=== PATIENT | female | born 1990 | race Caucasian/White ===

== ENCOUNTER 2018-10-25 21:05 | Outpatient (CLI) | payer SELFPAY ==
[~2018-10-25] VITALS: Ht 147.3 cm; Wt 45.6 kg
--- NOTE | 2018-10-25 21:23 | NUR ---
ALEXANDER FRAIRE presented to unit via ambulatory from ED, accompanied by family, with c/o STOMACH PAIN, BLEEDING. ALEXANDER FRAIRE weighed, gowned, voided, and to bed. EFKAYCE and CARIN applied, VS taken. ALEXANDER FRAIRE oriented to bed controls, call light, TV, heat, and A/C controls.
[2018-10-25 21:35] VITALS: BP 108/67
[2018-10-25 21:59] LABS: BILIRUBIN,URINE NEGATIVE (NEGATIVE); CLARITY,URINE CLEAR; COLOR,URINE YELLOW; GLUCOSE, URINE (UA) NEGATIVE (NEGATIVE); KETONES,URINE NEGATIVE (NEGATIVE); LEUKOCYTE ESTERASE ,URINE 1+ (NEGATIVE); NITRITE,URINE NEGATIVE (NEGATIVE); PH,URINE 8 (5-9); PROTEIN,URINE NEGATIVE (NEGATIVE); UROBILINOGEN,URINE NORMAL (NORMAL)
[2018-10-25 22:08] LABS: BACTERIA,URINE NEGATIVE /HPF; SQUAMOUS EPITHELIAL CELL,UR RARE /HPF; WBC,URINE 0-2 /HPF
[2018-10-25 22:09] LABS: AMORPHOUS SEDIMENT,UR MOD AMOR PHOSPHATE /LPF
--- NOTE | 2018-10-25 22:11 | NUR ---
This Rn called Dr Mera to notify of patient arrival and c/o lower abd pain and bleeding that last occurred around 1430 this afternoon, vs, fhr of 158 per doppler, and contraction pattern, notified of last sono of approx 2 months ago per patient, UA results, and gest age of 20wks. New orders received, Dr to review ultrasound report from when patient states.
[2018-10-25] MEDS ORDERED: ACETAMINOPHEN 500 MG TAB (TYLENOL) ONE (22:13)
--- NOTE | 2018-10-25 22:18 | NUR ---
Dr Mera called back to nurses station regarding patient ultrasound. New orders for sve received.
[2018-10-25] MEDS ORDERED: ACETAMINOPHEN 500 MG TAB (TYLENOL) PO ONE (22:30)
--- NOTE | 2018-10-25 23:28 | NUR ---
Patient no longer feels any pain. Dr Mera called per this RN, notified of 0/10 pain rating, uterine irritability and patient overall feeling better. OK for discharge home order received.
[2018-10-25] MEDS ORDERED: PREN-53 PO (23:29)
--- NOTE | 2018-10-25 23:29 | NUR ---
Uterine irritiability present on TOCO monitor with 2-3 contractions present lasting 40-70secs since patient arrived. FHR dopplered at 158bpm, patient abd non tender upon palpation since arrival. Patient states she feels tylenol has alleviated pain.
--- NOTE | 2018-10-25 23:40 | NUR ---
Discharge instructions reviewed and handouts provided to patient. Patient and family verbalize understanding. Patient and family ambulating off of unit at this time.
--- NOTE | 2018-10-29 09:38 | Physician Query-Final Dx ---
BINDU GUERRERO 10/29/18 0938: Clinic Account Progress/Dx Physician Query: Please give diagnosis Need dx and weeks of gestation. Date of Service Oct 25, 2018 at 21:05 ALIZE ARRIAGA DO 11/05/18 0654: Clinic Account Progress/Dx DIAGNOSIS: Diagnosis 20 week GA abdominal pain BINDU GUERRERO Oct 29, 2018 09:38 ALIZE ARRIAGA DO Nov 05, 2018 06:54
== END 2018-10-25 23:40 | disposition home or self-care (01) ==
LOC: WSo 21:05 → LDRP 21:10 → WSo 23:40
PROVIDERS: ATTEND Family Medicine
DX: O99.89 Other specified diseases and conditions complicating pregnancy, childbirth and the puerperium (principal); R10.32 Left lower quadrant pain; Z3A.20 20 weeks gestation of pregnancy
CPT/HCPCS: 81000; 99213

== ENCOUNTER 2019-01-24 07:40 | Emergency (ER) | payer SELFPAY | END 2019-01-24 10:23 | disposition home or self-care (01) | LOC: ER 07:40 ==

== ENCOUNTER 2019-02-16 03:58 | Outpatient (CLI) | payer OTHER ==
[2019-02-16] VITALS (14 sets, daily range): BP systolic 100–132; BP diastolic 56–92
[~2019-02-16] VITALS: Ht 149.9 cm; Wt 53.4 kg
[~2019-02-16 03:58] MED LIST: PREN-53 PO
--- NOTE | 2019-02-16 04:10 | NUR ---
GURMEET ADAMSON presented to unit via ambulation from ED, accompanied by so, with c/o CONTRACTIONS. GURMEET ADAMSON weighed, gowned, voided, and to bed. EFHM and TOCO applied, VS taken. GURMEET ADAMSON oriented to bed controls, call light, TV, heat, and A/C controls.
[2019-02-16 04:41] LABS: BILIRUBIN,URINE NEGATIVE (NEGATIVE); CLARITY,URINE CLEAR; COLOR,URINE YELLOW; GLUCOSE, URINE (UA) NEGATIVE (NEGATIVE); KETONES,URINE NEGATIVE (NEGATIVE); LEUKOCYTE ESTERASE ,URINE 1+ (NEGATIVE); NITRITE,URINE NEGATIVE (NEGATIVE); PH,URINE 6.5 (5-9); PROTEIN,URINE NEGATIVE (NEGATIVE); UROBILINOGEN,URINE NORMAL (NORMAL)
[2019-02-16 05:03] LABS: BACTERIA,URINE FEW /HPF
[2019-02-16] MEDS ORDERED: PHYTONADIONE (VIT. K) NEONATAL 1 MG/0.5 ML AMP ONE (08:40)
[2019-02-16] MEDS ORDERED: ERYTHROMYCIN OPHTH OINT 1 GM (SINGLE USE) TUBE ONE (08:40)
[2019-02-16] MEDS ORDERED: LACTATED RINGERS 1,000 ML IV SCH ×2 (09:15→13:30)
[2019-02-16] MEDS ORDERED: cefTRIAXone 500 MG/1.43 ML vial (IM ONLY) IM ONE (13:30)
[2019-02-16] MEDS ORDERED: LIDOCAINE 1% INJ 20 ML 20 ML VIAL INJ ONE (13:30)
[2019-02-16] MEDS ORDERED: hydrOXYzine (VISTARIL/ATARAX) 25 MG capsule/tablet PO ONE (13:30)
--- NOTE | 2019-02-16 14:51 | NUR ---
DR NEIL CALLED NEW ORDERS RECEIVED.
== END 2019-02-16 15:25 | disposition home or self-care (01) ==
LOC: WSo 03:58 → LDRP 03:59 → WSo 15:25
PROVIDERS: ATTEND Family Medicine
DX: O62.8 Other abnormalities of forces of labor (principal); Z3A.38 38 weeks gestation of pregnancy
CPT/HCPCS: 81000; 87088; 96360; 96361; 96372; 99213

== ENCOUNTER 2022-04-04 18:42 | Observation (INO) | payer SELFPAY ==
[~2022-04-04] VITALS: Ht 152 cm; Wt 51.0 kg
[~2022-04-04 18:42] MED LIST changes: +IBUP-844 PO
[2022-04-04 19:38] LABS: BILIRUBIN,URINE NEGATIVE (NEGATIVE); CLARITY,URINE CLEAR; COLOR,URINE YELLOW; GLUCOSE, URINE (UA) NEGATIVE (NEGATIVE); KETONES,URINE NEGATIVE (NEGATIVE); LEUKOCYTE ESTERASE ,URINE 1+ (NEGATIVE); NITRITE,URINE NEGATIVE (NEGATIVE); PROTEIN,URINE NEGATIVE (NEGATIVE)
--- NOTE | 2022-04-04 19:48 | ED Abdominal Pain ---
General Chief Complaint: OB < 20 WEEKS Stated Complaint: 5 WKS ,OVARIAN PAIN,SENT BY [facility] Nursing Triage Note: PT TO TRIAGE EQUIPMENT DRIVER USED. CLINIC STATES IS NOT WHERE IT SHOULD BE. RATES PAIN 02/12 HAS BLOOD IN URINE Source of Information: Patient Exam Limitations: No Limitations History of Present Illness Date Seen by Provider: Apr 04, 2022 Time Seen by Provider: 19:46 Initial Comments To ER by private vehicle from [facility] with reports of left-sided lower abdominal pain for 3 days. She only has her left ovary, the right was removed at the age of 12 due to ovarian cysts. She is about 5 weeks gestation, last menstrual period last month. . She has had vaginal bleeding. Macedonian-speaking only, brim stiffener used for communication Timing/Duration: 2-3 Days Severity/Quality: Moderate, Severe Location: LLQ Radiation: No Radiation Activities at Onset: None Allergies and Home Medications Allergies Coded Allergies: No Known Drug Allergies (Unverified , 10/25/18) Patient Home Medication List Home Medication List Reviewed: Yes Ibuprofen (Ibu) 600 Mg Tablet, 600 MG PO Q6HR Prescribed by: JOHN NEIL on 02/20/19 1205 Review of Systems Review of Systems Constitutional: see HPI EENTM: No Symptoms Reported Respiratory: No Symptoms Reported Cardiovascular: No Symptoms Reported Gastrointestinal: See HPI, Abdominal Pain Genitourinary: No Symptoms Reported Musculoskeletal: no symptoms reported Skin: no symptoms reported Psychiatric/Neurological: No Symptoms Reported Endocrine: No Symptoms Reported Hematologic/Lymphatic: No Symptoms Reported Past Dgrisjc-Bppdtp-Clmimq Hx Patient Social History Tobacco Use?: No Substance use?: No Alcohol Use?: No Pt feels they are or have been: No Immunizations Up To Date Tetanus Booster (TDap): Less than 5yrs PED Vaccines UTD: Yes Seasonal Allergies Seasonal Allergies: No Past Medical History Surgeries: Yes (R OOPHORECTOMY) Appendectomy, Oophorectomy Respiratory: No Cardiac: No Neurological: No Last Menstrual Period: Jan 18, 2022 HIV/AIDS: No Genitourinary: No Gastrointestinal: No Musculoskeletal: No Endocrine: No HEENT: No Cancer: No Psychosocial: No Integumentary: No Blood Disorders: No Family Medical History Patient reports no known family medical history. Physical Exam Vital Signs Vital Signs - First Documented 04/04/22 18:50 Temp 36.7 Pulse 82 Resp 18 B/P (MAP) 118/80 (93) Pulse Ox 100 Capillary Refill : Less Than 3 Seconds Height/Weight/BMI Height: 4'10.00" Weight: 100lbs. 10.0oz. 45.283486vd; 22.00 BMI Method: General Appearance: WD/WN, no apparent distress HEENT: PERRL/EOMI, normal ENT inspection Respiratory: no respiratory distress, no accessory muscle use Gastrointestinal: normal bowel sounds, soft, tenderness Extremities: normal range of motion, non-tender Neurologic/Psychiatric: alert, normal mood/affect, oriented x 3 Skin: normal color, warm/dry Progress/Results/Core Measures Results/Orders Lab Results Laboratory Tests Test 04/04/22 19:29 04/04/22 19:49 Range/Units Urine Color YELLOW Urine Clarity CLEAR Urine pH 6.0 5-9 Urine Specific [place] <=1.005 1.016-1.022 Urine Protein NEGATIVE NEGATIVE Urine Glucose (UA) NEGATIVE NEGATIVE Urine Ketones NEGATIVE NEGATIVE Urine Nitrite NEGATIVE NEGATIVE Urine Bilirubin NEGATIVE NEGATIVE Urine Urobilinogen 0.2 < = 1.0 MG/DL Urine Leukocyte Esterase 1+ H NEGATIVE Urine RBC (Auto) NEGATIVE NEGATIVE Urine RBC NONE /HPF Urine WBC NONE /HPF Urine Squamous Epithelial Cells NONE /HPF Urine Renal Epithelial Cells NONE /HPF Urine Crystals NONE /LPF Urine Bacteria NEGATIVE /HPF Urine Casts NONE /LPF Urine Mucus NEGATIVE /LPF Urine Culture Indicated NO White Blood Count 13.6 H 4.3-11.0 10^3/uL Red Blood Count 4.54 3.80-5.11 10^6/uL Hemoglobin 13.9 11.5-16.0 g/dL Hematocrit 40 35-52 % Mean Corpuscular Volume 89 80-99 fL Mean Corpuscular Hemoglobin 31 25-34 pg Mean Corpuscular Hemoglobin Concent 35 32-36 g/dL Red Cell Distribution Width 12.3 10.0-14.5 % Platelet Count 287 130-400 10^3/uL Mean Platelet Volume 9.5 9.0-12.2 fL Immature Granulocyte % (Auto) 0 % Neutrophils (%) (Auto) 73 42-75 % Lymphocytes (%) (Auto) 21 12-44 % Monocytes (%) (Auto) 4 0-12 % Eosinophils (%) (Auto) 1 0-10 % Basophils (%) (Auto) 0 0-10 % Neutrophils # (Auto) 10.0 H 1.8-7.8 10^3/uL Lymphocytes # (Auto) 2.9 1.0-4.0 10^3/uL Monocytes # (Auto) 0.6 0.0-1.0 10^3/uL Eosinophils # (Auto) 0.1 0.0-0.3 10^3/uL Basophils # (Auto) 0.0 0.0-0.1 10^3/uL Immature Granulocyte # (Auto) 0.1 0.0-0.1 10^3/uL Sodium Level 135 135-145 MMOL/L Potassium Level 3.6 3.6-5.0 MMOL/L Chloride Level 104 98-107 MMOL/L Carbon Dioxide Level 20 L 21-32 MMOL/L Anion Gap 11 5-14 MMOL/L Blood Urea Nitrogen 11 7-18 MG/DL Creatinine 0.71 0.60-1.30 MG/DL Estimat Glomerular Filtration Rate 116 BUN/Creatinine Ratio 15 Glucose Level 95 70-105 MG/DL Calcium Level 9.4 8.5-10.1 MG/DL Corrected Calcium 8.5-10.1 MG/DL Total Bilirubin 0.5 0.1-1.0 MG/DL Aspartate Amino Transf (AST/SGOT) 27 5-34 U/L Alanine Aminotransferase (ALT/SGPT) 89 H 0-55 U/L Alkaline Phosphatase 68 40-136 U/L Total Protein 7.9 6.4-8.2 GM/DL Albumin 4.6 H 3.2-4.5 GM/DL Human Chorionic Gonadotropin, Quant 2799 H <5 MIU/ML My Orders Orders - CHARY BUCKLEY APRN Hcg,Quantitative (04/04/22 19:31) Cbc With Automated Diff (04/04/22 19:31) Comprehensive Metabolic Panel (04/04/22 19:31) Ua Culture If Indicated (04/04/22 19:31) Ed Iv/Invasive Line Start (04/04/22 19:31) Fentanyl Inj (Sublimaze Injection) (04/04/22 20:00) Us Ob<14 Wks Sngle W/Transvag (04/04/22 20:28) Medications Given in ED Current Medications Medications Dose Ordered Sig/Gerson Route Start Time Stop Time Status Last Admin Dose Admin Fentanyl Citrate 50 mcg ONCE ONCE IVP 04/04/22 20:00 04/04/22 20:01 DC 04/04/22 20:04 50 MCG Vital Signs/I&O 04/04/22 18:50 Temp 36.7 Pulse 82 Resp 18 B/P (MAP) 118/80 (93) Pulse Ox 100 Blood Pressure Mean: 93 Departure Communication (Admissions) 3102-spoke with Dr. Rawls, will admit overnight pain control n.p.o. status and tentative plan for surgery in the morning. I relayed this plan to the patient and she understands. lead technologist in cytogenetics reports a gestational sac within the left ovary, no pole. This measures about 6 weeks consistent with her reported gestational age. Currently she rates her pain at 5 out of 1:10 dose of fentanyl. Impression Primary Impression: Ectopic of left ovary Disposition: ADMITTED INPATIENT Condition: Stable Admissions Decision to Admit Reason: Admit from ER (General) Decision to Admit/Date: Apr 04, 2022 Time/Decision to Admit Time: 22:58 Departure-Patient Inst. Referrals: JOHN NEIL MD (PCP/Family) Primary Care Physician CHARY BUCKLEY APRN Apr 04, 2022 19:48
[2022-04-04 19:51] LABS: BACTERIA,URINE NEGATIVE /HPF
[2022-04-04 19:56] LABS: BASOPHILS % (AUTO) 0 % (0-10); EOSINOPHILS # (AUTO) 0.1 10^3/uL (0.0-0.3); EOSINOPHILS % (AUTO) 1 % (0-10); HEMATOCRIT 40 % (35-52); HEMOGLOBIN 13.9 g/dL (11.5-16.0); LYMPHOCYTES # (AUTO) 2.9 10^3/uL (1.0-4.0); LYMPHOCYTES % (AUTO) 21 % (12-44); MEAN CORPUSCULAR HEMOGLOBIN 31 pg (25-34); MEAN CORPUSCULAR HGB CONC 35 g/dL (32-36); MEAN CORPUSCULAR VOLUME 89 fL (80-99); MEAN PLATELET VOLUME 9.5 fL (9.0-12.2); MONOCYTES # (AUTO) 0.6 10^3/uL (0.0-1.0); MONOCYTES % (AUTO) 4 % (0-12); NEUTROPHILS % (AUTO) 73 % (42-75); PLATELET COUNT 287 10^3/uL (130-400); WHITE BLOOD COUNT 13.6 10^3/uL (4.3-11.0)
[2022-04-04] MEDS ORDERED: fentaNYL INJ 100 MCG/2 ML AMP IVP ONE ×2 (20:00→23:15)
[2022-04-04 20:19] LABS: ALANINE AMINOTRANSFERASE 89 U/L (0-55); ALBUMIN 4.6 GM/DL (3.2-4.5); ALKALINE PHOSPHATASE 68 U/L (40-136); BILIRUBIN,TOTAL 0.5 MG/DL (0.1-1.0); BUN/CREATININE RATIO 15; CALCIUM 9.4 MG/DL (8.5-10.1); CARBON DIOXIDE 20 MMOL/L (21-32); CHLORIDE 104 MMOL/L (98-107); CREATININE SERUM 0.71 MG/DL (0.60-1.30); GFR ESTIMATED 116; GLUCOSE 95 MG/DL (70-105); POTASSIUM 3.6 MMOL/L (3.6-5.0); SODIUM 135 MMOL/L (135-145); TOTAL PROTEIN 7.9 GM/DL (6.4-8.2)
[2022-04-05] MEDS ORDERED: LACTATED RINGERS 1,000 ML IV ONE (00:55)
[2022-04-05] MEDS ORDERED: ONDANSETRON 4 MG/2 ML (SDV) Z0FRAN ONE (00:55)
[2022-04-05 01:00] VITALS: BP 116/73
[2022-04-05] MEDS ORDERED: ONDANSETRON 4 MG/2 ML (SDV) Z0FRAN IVP PRN (01:00)
[2022-04-05] MEDS ORDERED: fentaNYL INJ 100 MCG/2 ML AMP IVP PRN (01:00)
[2022-04-05] MEDS ORDERED: LACTATED RINGERS 1,000 ML IV SCH (01:00)
[2022-04-05 05:22] VITALS: BP 105/59
--- NOTE | 2022-04-05 06:54 | Diagnostic Imaging Report ---
Indication: Left lower quadrant pain Transabdominal and endovaginal OB ultrasound Uterus measures 7.8 x 5.0 x 7.7 cm. There is a 2.5 mm fluid collection within the endometrial cavity at the uterine fundus. This is too small to be determined to be an intrauterine gestational sac.. Page 101 of 152 mmHg does suggest a double decidual line. Right ovary cannot be located sonographically because of overlying bowel gas. Left ovary appears to be hyperemic. There is a trace amount of free fluid. IMPRESSION: Questionable early intrauterine gestational sac. Ectopic left adnexal cannot completely be excluded. Recommend short term interval follow-up and correlation with hCG levels. I agree with preliminary interpretation. Dictated by: Dictated on workstation # [id number] [id number]
--- NOTE | 2022-04-05 08:16 | History & Physical-OB/GYN ---
History of Present Illness History of Present Illness Reason for visit/HPI Lower abdominal pain, adnexal cystic structure and positive test. Patient admitted from ER with possible ectopic vs early viable . She reports a 3 day history of lower abdominal pelvic pain that brought her to emergency room last night. She received a dose of fentynl in the ER, but has required no further pain medications overnight. This morning she reports being sore and having pain on the left side of the pelvis, but no vaginal bleeding. Date of Admission Apr 04, 2022 at 23:02 Date Seen by a Provider: Apr 05, 2022 Time Seen by a Provider: 07:45 I consulted on this patient on 04/05/22 08:12 Attending Physician John Neil MD Admitting Physician Admitting Physician: Capo Rawls DO Attending Physician: Capo Rawls DO Consult Allergies and Home Medications Allergies Coded Allergies: No Known Drug Allergies (Unverified , 10/25/18) Patient Home Medication List Home Medication List Reviewed: Yes Ibuprofen (Ibu) 600 Mg Tablet, 600 MG PO Q6HR Prescribed by: JOHN NEIL on 02/20/19 1205 Past Ahdlegz-Lvopvj-Loyprs Hx Patient Social History Recent Hopitalizations: No Have you traveled recently?: No Alcohol Use?: No Pt feels they are or have been: No Immunizations Up To Date Tetanus Booster (TDap): Less than 5yrs Pediatric: Yes Date of Influenza Vaccine: Jan 27, 2019 Seasonal Allergies Seasonal Allergies: No Surgeries Yes (R OOPHORECTOMY) Appendectomy, Oophorectomy Respiratory No Cardiovascular No Neurological No Reproductive System Last Menstrual Period: Jan 18, 2022 HIV/AIDS: No Genitourinary No Gastrointestinal No Musculoskeletal No Endocrine History of Endocrine Disorders: No HEENT History of HEENT Disorders: No Cancer No Psychosocial History of Psychiatric Problem: No Integumentary History of Skin or Integumenta: No Blood Transfusions History of Blood Disorders: No Family Medical History Family Hx: Patient reports no known family medical history. Review of Systems Constitutional: see HPI EENTM: see HPI Respiratory: see HPI Cardiovascular: see HPI Gastrointestinal: see HPI Genitourinary: see HPI : Yes Musculoskeletal: see HPI Skin: see HPI Psychiatric/Neurological: See HPI All Other Systems Reviewed Negative Unless Noted: Yes Physical Exam Physical Exam Vital Signs Vital Signs Date Time Temp Pulse Resp B/P (MAP) Pulse Ox O2 Delivery O2 Flow Rate FiO2 04/05/22 05:22 36.4 77 18 105/59 (74) 99 Room Air 04/05/22 01:00 36.3 73 18 116/73 (87) 100 Room Air 04/05/22 00:31 72 18 108/75 98 Room Air 04/04/22 18:50 36.7 82 18 118/80 (93) 100 Capillary Refill : Less Than 3 Seconds Labs Laboratory Tests 04/04/22 19:29: Urine Color YELLOW, Urine Clarity CLEAR, Urine pH 6.0, Urine Specific [place] <=1.005, Urine Protein NEGATIVE, Urine Glucose (UA) NEGATIVE, Urine Ketones NEGATIVE, Urine Nitrite NEGATIVE, Urine Bilirubin NEGATIVE, Urine Urobilinogen 0.2, Urine Leukocyte Esterase 1+H, Urine RBC (Auto) NEGATIVE, Urine RBC NONE, Urine WBC NONE, Urine Squamous Epithelial Cells NONE, Urine Renal Epithelial Cells NONE, Urine Crystals NONE, Urine Bacteria NEGATIVE, Urine Casts NONE, Urine Mucus NEGATIVE, Urine Culture Indicated NO 04/04/22 19:49: White Blood Count 13.6H, Red Blood Count 4.54, Hemoglobin 13.9, Hematocrit 40, Mean Corpuscular Volume 89, Mean Corpuscular Hemoglobin 31, Mean Corpuscular Hemoglobin Concent 35, Red Cell Distribution Width 12.3, Platelet Count 287, Mean Platelet Volume 9.5, Immature Granulocyte % (Auto) 0, Neutrophils (%) (Auto) 73, Lymphocytes (%) (Auto) 21, Monocytes (%) (Auto) 4, Eosinophils (%) (Auto) 1, Basophils (%) (Auto) 0, Neutrophils # (Auto) 10.0H, Lymphocytes # (Auto) 2.9, Monocytes # (Auto) 0.6, Eosinophils # (Auto) 0.1, Basophils # (Auto) 0.0, Immature Granulocyte # (Auto) 0.1, Sodium Level 135, Potassium Level 3.6, Chloride Level 104, Carbon Dioxide Level 20L, Anion Gap 11, Blood Urea Nitrogen 11, Creatinine 0.71, Estimat Glomerular Filtration Rate 116, BUN/Creatinine Ratio 15, Glucose Level 95, Calcium Level 9.4, Corrected Calcium , Total Bilirubin 0.5, Aspartate Amino Transf (AST/SGOT) 27, Alanine Aminotransferase (ALT/SGPT) 89H, Alkaline Phosphatase 68, Total Protein 7.9, Albumin 4.6H, Human Chorionic Gonadotropin, Quant 2799H 04/05/22 06:11: Radiology Studies Date of Exam:04/04/22 US OB<14 WKS SNGLE W/TRANSVAG Indication: Left lower quadrant pain Transabdominal and endovaginal OB ultrasound Uterus measures 7.8 x 5.0 x 7.7 cm. There is a 2.5 mm fluid collection within the endometrial cavity at the uterine fundus. This is too small to be determined to be an intrauterine gestational sac.. Page 101 of 152 mmHg does suggest a double decidual line. Right ovary cannot be located sonographically because of overlying bowel gas. Left ovary appears to be hyperemic. There is a trace amount of free fluid. IMPRESSION: Questionable early intrauterine gestational sac. Ectopic left adnexal cannot completely be excluded. Recommend short term interval follow-up and correlation with hCG levels. I agree with preliminary interpretation. Dictated by: Dictated on workstation # [id number] [id number] Dict: 04/05/2247 Trans: 04/05/2253 TC [id number] Interpreted by: RAMOS BETANCOURT MD Electronically signed by: RAMOS BETANCOURT MD 04/05/2253 General Appearance: No Apparent Distress, WD/WN Respiratory: Lungs Clear Cardiovascular: Regular Rate, Rhythm, No Edema Abdominal: normal bowel sounds, LLQ (tenderness, mild rebound, no guarding no rigidity) Pelvic Exam: deferred Comments Laboratory Tests Test 04/04/22 19:29 04/04/22 19:49 04/05/22 06:11 Range/Units Urine Color YELLOW Urine Clarity CLEAR Urine pH 6.0 5-9 Urine Specific [place] <=1.005 1.016-1.022 Urine Protein NEGATIVE NEGATIVE Urine Glucose (UA) NEGATIVE NEGATIVE Urine Ketones NEGATIVE NEGATIVE Urine Nitrite NEGATIVE NEGATIVE Urine Bilirubin NEGATIVE NEGATIVE Urine Urobilinogen 0.2 < = 1.0 MG/DL Urine Leukocyte Esterase 1+ H NEGATIVE Urine RBC (Auto) NEGATIVE NEGATIVE Urine RBC NONE /HPF Urine WBC NONE /HPF Urine Squamous Epithelial Cells NONE /HPF Urine Renal Epithelial Cells NONE /HPF Urine Crystals NONE /LPF Urine Bacteria NEGATIVE /HPF Urine Casts NONE /LPF Urine Mucus NEGATIVE /LPF Urine Culture Indicated NO White Blood Count 13.6 H 4.3-11.0 10^3/uL Red Blood Count 4.54 3.80-5.11 10^6/uL Hemoglobin 13.9 11.5-16.0 g/dL Hematocrit 40 35-52 % Mean Corpuscular Volume 89 80-99 fL Mean Corpuscular Hemoglobin 31 25-34 pg Mean Corpuscular Hemoglobin Concent 35 32-36 g/dL Red Cell Distribution Width 12.3 10.0-14.5 % Platelet Count 287 130-400 10^3/uL Mean Platelet Volume 9.5 9.0-12.2 fL Immature Granulocyte % (Auto) 0 % Neutrophils (%) (Auto) 73 42-75 % Lymphocytes (%) (Auto) 21 12-44 % Monocytes (%) (Auto) 4 0-12 % Eosinophils (%) (Auto) 1 0-10 % Basophils (%) (Auto) 0 0-10 % Neutrophils # (Auto) 10.0 H 1.8-7.8 10^3/uL Lymphocytes # (Auto) 2.9 1.0-4.0 10^3/uL Monocytes # (Auto) 0.6 0.0-1.0 10^3/uL Eosinophils # (Auto) 0.1 0.0-0.3 10^3/uL Basophils # (Auto) 0.0 0.0-0.1 10^3/uL Immature Granulocyte # (Auto) 0.1 0.0-0.1 10^3/uL Sodium Level 135 135-145 MMOL/L Potassium Level 3.6 3.6-5.0 MMOL/L Chloride Level 104 98-107 MMOL/L Carbon Dioxide Level 20 L 21-32 MMOL/L Anion Gap 11 5-14 MMOL/L Blood Urea Nitrogen 11 7-18 MG/DL Creatinine 0.71 0.60-1.30 MG/DL Estimat Glomerular Filtration Rate 116 BUN/Creatinine Ratio 15 Glucose Level 95 70-105 MG/DL Calcium Level 9.4 8.5-10.1 MG/DL Corrected Calcium 8.5-10.1 MG/DL Total Bilirubin 0.5 0.1-1.0 MG/DL Aspartate Amino Transf (AST/SGOT) 27 5-34 U/L Alanine Aminotransferase (ALT/SGPT) 89 H 0-55 U/L Alkaline Phosphatase 68 40-136 U/L Total Protein 7.9 6.4-8.2 GM/DL Albumin 4.6 H 3.2-4.5 GM/DL Human Chorionic Gonadotropin, Quant 2799 H <5 MIU/ML Assessment/Plan Admission Diagnosis Diagnosis: 31 yo @ approx 2-4 weeks gestation Indeterminate/uncertain viability of Left sided pelvic pain Left adnexal cyst Plan: An diplomatic interpreter was used to discuss the situation and importance of close follow up due to this condition: The patient was told and understands that she could have a potentially viable and at this point it cannot be determined one way or another. An ectopic was also discussed as a possibility and the repercussions/treatments of this were briefly covered as well. I discussed with patient due to her pain subsiding that we have the opportunity to evaluate outpatient if this is viable by repeat a BHCG at 36-48 hours which should give us an answer about viability of the . A stat progesterone level was ordered but this is a send out and may take until Saturday to get back. I gave the patient extensive ectopic rupture symptoms and precautions as to return to hospital. She is going to have short term lab follow up in the office tomorrow to have repeat HCG levels drawn, this will allow us to make a better determination of treatment or expectant management to approach this coming weekend. Admission Status: Observation CAPO RAWLS DO Apr 05, 2022 08:16
[2022-04-05] MEDS ORDERED: TRAM100T40 PO ×2 (08:25→09:44)
[2022-04-05 09:05] VITALS: BP 98/57
[2022-04-06] MEDS ORDERED: ONDA4TAB11 SL (13:14)
== END 2022-04-05 10:00 | disposition home or self-care (01) ==
LOC: EDUNIT# 18:42 → ER 18:44 → WS 23:02
PROVIDERS: ADMIT Obstetrics & Gynecology; ATTEND Obstetrics & Gynecology
DX: O36.80X0 Pregnancy with inconclusive fetal viability, not applicable or unspecified (principal); O26.893 Other specified pregnancy related conditions, third trimester; R10.2 Pelvic and perineal pain; Z3A.32 32 weeks gestation of pregnancy; O34.83 Maternal care for other abnormalities of pelvic organs, third trimester
CPT/HCPCS: 76801; 76817; 80053; 81000; 84144; 84702; 85025; 96361; 96375; 99283; G0378; 36415

== ENCOUNTER 2022-04-06 08:21 | Emergency (ER) | payer SELFPAY ==
[~2022-04-06] VITALS: Ht 147.3 cm; Wt 51.7 kg
[~2022-04-06 08:21] MED LIST changes: +TRAM100T40 PO
--- NOTE | 2022-04-06 08:49 | ED Abdominal Pain ---
General Stated Complaint: VOMITING | BODY ACHES Source of Information: Patient Exam Limitations: Language Barrier History of Present Illness Date Seen by Provider: Apr 06, 2022 Time Seen by Provider: 08:40 Initial Comments Patient is a 31-year-old female who presents to the emergency room with increased pain, nausea in the abdomen. Patient was seen in the emergency department on 04-04-2022 with complaints of abdominal pain over the course of about 3 days. She was approximately 5 weeks gestation. G2, P1. She was complaining at the time of some mild vaginal bleeding. Work-up and ultrasound revealed a gestational sac in the left ovary without evidence of pole. Quantitative hCG was positive. She was admitted overnight to Dr. Rawls. She remained hemodynamically stable and was discharged yesterday. She was instructed to come back to Dr. Rawls's office prior to 10 AM this morning for repeat quantitative hCG. She states that she did this and then presented to the emergency room for pain control. I contacted Dr. Rawls's office at [phone] and they stated her blood work was currently pending. IV placed, pain medications given. Pending repeat quant results and will discuss with Dr. Rawls. Timing/Duration: 2-3 Days Severity/Quality: Severe, Cramping Location: LLQ Radiation: Other (generalized) Modifying Factors: Worsens With Movement Associated Symptoms: Weakness Allergies and Home Medications Allergies Coded Allergies: No Known Drug Allergies (Unverified , 10/25/18) Patient Home Medication List Home Medication List Reviewed: Yes Tramadol HCl (Tramadol HCl) 100 Mg Tablet, 100 MG PO Q6H Prescribed by: CANDIDA RAWLS on 04/05/22 0945 Discontinued Medications Ibuprofen (Ibu) 600 Mg Tablet, 600 MG PO Q6HR Prescribed by: JOHN NEIL on 02/20/19 1205 Review of Systems Review of Systems Constitutional: see HPI Respiratory: No Symptoms Reported Cardiovascular: No Symptoms Reported Gastrointestinal: Abdominal Pain, Nausea Musculoskeletal: no symptoms reported Skin: no symptoms reported Psychiatric/Neurological: No Symptoms Reported All Other Systems Reviewed Negative Unless Noted: Yes Past Rfwbdfp-Wczrul-Phhpec Hx Immunizations Up To Date Tetanus Booster (TDap): Less than 5yrs PED Vaccines UTD: Yes Seasonal Allergies Seasonal Allergies: No Past Medical History Surgeries: Yes (R OOPHORECTOMY) Appendectomy, Oophorectomy Respiratory: No Cardiac: No Neurological: No HIV/AIDS: No Genitourinary: No Gastrointestinal: No Musculoskeletal: No Endocrine: No HEENT: No Cancer: No Psychosocial: No Integumentary: No Blood Disorders: No Family Medical History Patient reports no known family medical history. Physical Exam Vital Signs Vital Signs - First Documented 04/06/22 08:34 Temp 35.0 Pulse 94 Resp 18 B/P (MAP) 137/91 (106) O2 Delivery Room Air Capillary Refill : Height/Weight/BMI Height: 4'10.00" Weight: 100lbs. 10.0oz. 45.033371sm; 22.00 BMI Method: General Appearance: WD/WN, mild distress, other (stable VS) Respiratory: no respiratory distress, no accessory muscle use Cardiovascular: regular rate, rhythm Gastrointestinal: abnormal bowel sounds (hypoactive), other (LLQ tenderness with involuntary guarding) Extremities: normal range of motion, non-tender, normal inspection, no pedal edema, normal capillary refill Neurologic/Psychiatric: alert, normal mood/affect, oriented x 3 Skin: normal color, warm/dry Progress/Results/Core Measures Results/Orders Lab Results Laboratory Tests Test 04/06/22 08:59 Range/Units White Blood Count 14.9 H 4.3-11.0 10^3/uL Red Blood Count 4.33 3.80-5.11 10^6/uL Hemoglobin 13.4 11.5-16.0 g/dL Hematocrit 39 35-52 % Mean Corpuscular Volume 89 80-99 fL Mean Corpuscular Hemoglobin 31 25-34 pg Mean Corpuscular Hemoglobin Concent 35 32-36 g/dL Red Cell Distribution Width 12.3 10.0-14.5 % Platelet Count 271 130-400 10^3/uL Mean Platelet Volume 9.9 9.0-12.2 fL Immature Granulocyte % (Auto) 1 % Neutrophils (%) (Auto) 89 H 42-75 % Lymphocytes (%) (Auto) 8 L 12-44 % Monocytes (%) (Auto) 2 0-12 % Eosinophils (%) (Auto) 0 0-10 % Basophils (%) (Auto) 0 0-10 % Neutrophils # (Auto) 13.2 H 1.8-7.8 10^3/uL Lymphocytes # (Auto) 1.2 1.0-4.0 10^3/uL Monocytes # (Auto) 0.3 0.0-1.0 10^3/uL Eosinophils # (Auto) 0.0 0.0-0.3 10^3/uL Basophils # (Auto) 0.0 0.0-0.1 10^3/uL Immature Granulocyte # (Auto) 0.1 0.0-0.1 10^3/uL Neutrophils % (Manual) 86 % Lymphocytes % (Manual) 9 % Monocytes % (Manual) 3 % Eosinophils % (Manual) 2 % Clumped Platelets OCCASIONAL Sodium Level 134 L 135-145 MMOL/L Potassium Level 3.5 L 3.6-5.0 MMOL/L Chloride Level 104 98-107 MMOL/L Carbon Dioxide Level 18 L 21-32 MMOL/L Anion Gap 12 5-14 MMOL/L Blood Urea Nitrogen 10 7-18 MG/DL Creatinine 0.66 0.60-1.30 MG/DL Estimat Glomerular Filtration Rate 119 BUN/Creatinine Ratio 15 Glucose Level 117 H 70-105 MG/DL Calcium Level 9.1 8.5-10.1 MG/DL My Orders Orders - DANA GOULD MD Ed Iv/Invasive Line Start (04/06/22 08:46) Cbc With Automated Diff (04/06/22 08:46) Basic Metabolic Panel (04/06/22 08:46) Fentanyl Inj (Sublimaze Injection) (04/06/22 09:00) Ondansetron Injection (Zofran Injectio (04/06/22 09:00) Manual Differential (04/06/22 08:59) Us Ob<14 Wks Sngle W/Transvag (04/06/22 10:30) Medications Given in ED Current Medications Medications Dose Ordered Sig/Gerson Route Start Time Stop Time Status Last Admin Dose Admin Fentanyl Citrate 25 mcg ONCE ONCE IVP 04/06/22 09:00 04/06/22 09:01 DC 04/06/22 09:04 25 MCG Ondansetron HCl 4 mg ONCE ONCE IVP 04/06/22 09:00 04/06/22 09:01 DC 04/06/22 09:03 4 MG Vital Signs/I&O 04/06/22 08:34 Temp 35.0 Pulse 94 Resp 18 B/P (MAP) 137/91 (106) O2 Delivery Room Air Progress Progress Note #1: Time: 10:32 Progress Note Discussed with Dr Rawls. Quant doubled. Progesterone 17. He thinks this is an IUP with a large ovarian cyst. concern for heterotopic preg however. WOuld like patient to have another U'S Progress Note #2: Time: 13:00 Progress Note Patient U/S today shows IUP. No concerning findings for ruptured ectopic. She does have a mass on the left ovary that Dr. Rawls reviewed with Dr. Travis. It may be hemorrhagic it may be solid but it is about 3 cm and not concerning for torsion. The left ovary does have blood flow. No free fluid in the pelvis. Her quantitative hCG per Dr. Rawls's office has doubled and her progesterone is elevated at 17 or 18. She does have fairly significant pain still and has not taken any pain medicine today. Dr. Rawls gave her some tramadol. We will give her 1 here if she is still quite uncomfortable laying in the bed. Patient has a scheduled appointment with Dr. Rawls next week. Will recommend also Tylenol and hydration. Discharge instructions to be given with video doll surgeon. Departure Impression Primary Impression: 5 weeks gestation of Additional Impressions: Pelvic pain Ovarian mass, left Disposition: HOME, SELF-CARE Condition: Stable Departure-Patient Inst. Decision time for Depature: 13:07 Referrals: CANDIDA RAWLS HOLLY R MD (PCP/Family) Primary Care Physician Patient Instructions: Bleeding in Early ED Add. Discharge Instructions: You need to start taking vitamins at night. Take these every day. Take the tramadol that Dr. Rawls wrote for you every 6 hours as needed for pain. You can also take Tylenol extra strength, 2 tablets every 6 hours for pain. If you have pain that is not controlled with the Tylenol or tramadol, worsening vaginal bleeding please come back to the emergency room for reevaluation. Keep the appointment you have scheduled with Dr. Rawls next week. I have sent a prescription to [facility] for Zofran - nausea medication. you can take this every 8 hours as needed for nausea. Debe comenzar a marychuy vitaminas prenatales por la noche. Tmelos todos los figueroa. Alvan el tramadol que el Dr. Rawls escribi para usted cada 6 horas segn sea necesario para el dolor. Tambin puede marychuy Tylenol extra gin, 2 tabletas cada 6 horas para el dolor. Si tiene dolor que no se controla con Tylenol o tramadol, empeorando el sangrado vaginal, regrese a la eleuterio de emergencias para wilfredo reevaluacin. Asista a la keron que palmer programado con el Dr. Rawls la prxima semana. He enviado wilfredo receta a [facility] para Zofran - medicamento para las nuseas. Puede marychuy esto cada 8 horas segn sea necesario para las nuseas. Scripts Ondansetron (Ondansetron Odt) 4 Mg Tab.rapdis 4 MG SL Q8H PRN for NAUSEA/VOMITING, #20 TAB Prov: DANA GOULD MD 04/06/22 Work/School Note: Work Release Form Date Seen in the Emergency Department: Apr 06, 2022 Return to Work: Apr 09, 2022 Copy Copies To 1: CANDIDA RAWLS DO Copies To 2: JOHN NEIL MD, KATHRYN M MD Apr 06, 2022 08:49
[2022-04-06] MEDS ORDERED: fentaNYL INJ 100 MCG/2 ML AMP IVP ONE (09:00)
[2022-04-06] MEDS ORDERED: ONDANSETRON 4 MG/2 ML (SDV) Z0FRAN IVP ONE ×2 (09:00→13:15)
[2022-04-06 09:15] LABS: BASOPHILS % (AUTO) 0 % (0-10); EOSINOPHILS % (AUTO) 0 % (0-10); HEMATOCRIT 39 % (35-52); HEMOGLOBIN 13.4 g/dL (11.5-16.0); LYMPHOCYTES # (AUTO) 1.2 10^3/uL (1.0-4.0); LYMPHOCYTES % (AUTO) 8 % (12-44); MEAN CORPUSCULAR HEMOGLOBIN 31 pg (25-34); MEAN CORPUSCULAR HGB CONC 35 g/dL (32-36); MEAN CORPUSCULAR VOLUME 89 fL (80-99); MEAN PLATELET VOLUME 9.9 fL (9.0-12.2); MONOCYTES # (AUTO) 0.3 10^3/uL (0.0-1.0); MONOCYTES % (AUTO) 2 % (0-12); NEUTROPHILS # (AUTO) 13.2 10^3/uL (1.8-7.8); NEUTROPHILS % (AUTO) 89 % (42-75); PLATELET COUNT 271 10^3/uL (130-400); WHITE BLOOD COUNT 14.9 10^3/uL (4.3-11.0)
[2022-04-06 09:22] LABS: POTASSIUM 3.5 MMOL/L (3.6-5.0)
[2022-04-06 09:27] LABS: CREATININE SERUM 0.66 MG/DL (0.60-1.30)
[2022-04-06 09:43] LABS: EOSINOPHILS % (MANUAL) 2 %; LYMPHOCYTES % (MANUAL) 9 %; MONOCYTES % (MANUAL) 3 %; NEUTROPHILS % (MANUAL) 86 %
[2022-04-06 09:44] LABS: PLATELET CLUMPS OCCASIONAL
[2022-04-06 10:01] LABS: CALCIUM 9.1 MG/DL (8.5-10.1)
--- NOTE | 2022-04-06 12:37 | Diagnostic Imaging Report ---
Exam: Ultrasound OB less than 14 weeks. Date: April 06, 2022. Indication: 31-year-old female, left adnexal pain. Positive test. Comparison: April 04, 2022 ultrasound. Findings: Transabdominal and endovaginal approaches were utilized. There is an oval intrauterine gestational sac with question of a pole. Estimated gestational age based on today's crown-rump length measurements is 5 weeks and 6 days +/- 1 week. There is no demonstrated heart rate. The left ovary measures 3.6 x 2.1 x 1.9 cm in size. There is blood flow to the left ovary. There is no concerning adnexal mass. Impression: 1. Probable intrauterine oval gestational sac with questionable pole. Estimated gestational age based on crown-rump length measurements is 5 weeks and 6 days +/- 1 week. No demonstrated heart rate. Recommend correlation and continued followup. 2. Unremarkable sonographic appearance of the left ovary. Dictated by: Dictated on workstation # [id number]
[2022-04-06] MEDS ORDERED: ONDA4TAB11 SL (13:14)
[2022-04-06 13:35] VITALS: BP 133/64
== END 2022-04-06 13:37 | disposition home or self-care (01) ==
LOC: EDUNIT# 08:21 → ER 08:23
DX: O26.891 Other specified pregnancy related conditions, first trimester (principal); R10.2 Pelvic and perineal pain; N83.9 Noninflammatory disorder of ovary, fallopian tube and broad ligament, unspecified; Z90.49 Acquired absence of other specified parts of digestive tract; Z28.310 Unvaccinated for COVID-19; Z3A.01 Less than 8 weeks gestation of pregnancy
CPT/HCPCS: 36415; 76801; 76817; 80048; 85007; 85027

== ENCOUNTER 2022-05-03 17:30 | Emergency (ER) | payer SELFPAY ==
[~2022-05-03] VITALS: Ht 147 cm; Wt 51.7 kg
[~2022-05-03 17:30] MED LIST changes: +ONDA4TAB11 SL
--- NOTE | 2022-05-03 18:56 | ED GU-Female ---
General Chief Complaint: OB < 20 WEEKS Stated Complaint: TROUBLE BREATHING,8 WKS Nursing Triage Note: TO TRIAGE WITH COMPLAINTS OF SOB STARTING YESTERDAY. LEFT LOWER ABD PAIN AND YELLOW VAGINAL DISCHARGE STARTING X4 DAYS AGO. PT IS 8 WEEKS GESTATION. Source: patient Exam Limitations: language barrier History of Present Illness Date Seen by Provider: May 03, 2022 Time Seen by Provider: 18:50 Initial Comments Patient is a 31-year-old female who presents to the emergency department today with a chief complaint of feeling short of breath for the last 24 hours, no productive cough no fevers chills or URI symptoms. She is also over the last 3 days or so developed some abdominal pain that seems localized in the left lower quadrant. She is not nauseous, she has been able to eat. She states she is approximately 8 weeks with last menstrual cycle on 02/24/2022 this is her second . Her last delivery was 3 years ago. No complications. She has had prior ovary removal as her only abdominal surgery. She denies diarrhea, black or bloody stools. She has not taken anything for the pain. She states she has some increased vaginal discharge over the last 3 or 4 days. She denies concern for sexually transmitted infection. She states that she did have some abdominal pain about 20 days ago, was seen at [facility] and had an ultrasound that demonstrated an intrauterine . She also does endorse some dysuria. All other review of systems reviewed and negative except as stated. History and physical exam facilitated by use of video body shop floorperson. Timing/Duration: yesterday (3-4 days) Severity/Quality: moderate, cramping Location: LLQ Radiation: other (diffuse) Activities at Onset: none Modifying Factors: Worsens With Palpation Associated Symptoms: dysuria, lower back pain (on the left); No nausea/vomiting; urinary frequency Allergies and Home Medications Allergies Coded Allergies: No Known Drug Allergies (Unverified , 10/25/18) Patient Home Medication List Home Medication List Reviewed: Yes Discontinued Medications Ondansetron (Ondansetron Odt) 4 Mg Tab.rapdis, 4 MG SL Q8H PRN for NAUSEA/VOMITING Discontinued Reason: No Longer Taking Prescribed by: DANA GOULD on 04/06/22 1314 Last Action: Discontinued Tramadol HCl (Tramadol HCl) 100 Mg Tablet, 100 MG PO Q6H Discontinued Reason: No Longer Taking Prescribed by: CANDIDA HANNA on 04/05/22 0945 Last Action: Discontinued Review of Systems Review of Systems Constitutional: see HPI EENTM: no symptoms reported Respiratory: short of breath Cardiovascular: no symptoms reported Gastrointestinal: abdominal pain Genitourinary: frequency : Yes Expected Date of Delivery: Oct 25, 2022 LMP: Feb 24, 2022 Musculoskeletal: no symptoms reported Skin: no symptoms reported All Other Systemes Reviewed Negative Unless Noted: Yes Past Mwoygdo-Perjiw-Hrqhxf Hx Patient Social History Tobacco Use?: No Substance use?: No Alcohol Use?: No Immunizations Up To Date Tetanus Booster (TDap): Less than 5yrs PED Vaccines UTD: Yes Seasonal Allergies Seasonal Allergies: No Past Medical History Surgeries: Yes (R OOPHORECTOMY) Appendectomy, Oophorectomy Respiratory: No Cardiac: No Neurological: No Expected Date of Delivery: Oct 25, 2022 HIV/AIDS: No Genitourinary: No Gastrointestinal: No Musculoskeletal: No Endocrine: No HEENT: No Cancer: No Psychosocial: No Integumentary: No Blood Disorders: No Family Medical History Patient reports no known family medical history. Physical Exam Vital Signs Vital Signs - First Documented 05/03/22 17:45 Temp 36.8 Pulse 72 Resp 16 B/P (MAP) 118/79 (92) Pulse Ox 100 O2 Delivery Room Air Capillary Refill : Less Than 3 Seconds Height, Weight, BMI Height: 4'10.00" Weight: 100lbs. 10.0oz. 45.437584ew; 23.00 BMI Method: General Appearance: WD/WN, no apparent distress HEENT: PERRL/EOMI Cardiovascular: regular rate, rhythm, no murmur Respiratory: lungs clear, normal breath sounds, no respiratory distress, no accessory muscle use Gastrointestinal: soft, guarding, tenderness (diffuse abdominal tenderness with voluntary guarding; normal bowel sounds) Extremities: normal range of motion, non-tender, normal inspection, no pedal edema Neurologic/Psychiatric: alert, normal mood/affect, oriented x 3 Skin: normal color, warm/dry Progress/Results/Core Measures Suspected Sepsis SIRS Temperature: Pulse: 72 Respiratory Rate: 16 Laboratory Tests 05/03/22 19:11: White Blood Count 12.5H Blood Pressure 118 /79 Mean: 92 Laboratory Tests 05/03/22 19:11: Creatinine 0.64, Platelet Count 308, Total Bilirubin 0.4 Results/Orders Lab Results Laboratory Tests Test 05/03/22 19:06 05/03/22 19:11 Range/Units Urine Color YELLOW Urine Clarity CLEAR Urine pH 6.0 5-9 Urine Specific [place] 1.020 1.016-1.022 Urine Protein NEGATIVE NEGATIVE Urine Glucose (UA) NEGATIVE NEGATIVE Urine Ketones NEGATIVE NEGATIVE Urine Nitrite NEGATIVE NEGATIVE Urine Bilirubin NEGATIVE NEGATIVE Urine Urobilinogen 0.2 < = 1.0 MG/DL Urine Leukocyte Esterase TRACE H NEGATIVE Urine RBC (Auto) NEGATIVE NEGATIVE Urine RBC NONE /HPF Urine WBC 2-5 /HPF Urine Squamous Epithelial Cells 2-5 /HPF Urine Crystals NONE /LPF Urine Bacteria TRACE /HPF Urine Casts NONE /LPF Urine Mucus NEGATIVE /LPF Urine Culture Indicated NO White Blood Count 12.5 H 4.3-11.0 10^3/uL Red Blood Count 4.41 3.80-5.11 10^6/uL Hemoglobin 13.6 11.5-16.0 g/dL Hematocrit 39 35-52 % Mean Corpuscular Volume 89 80-99 fL Mean Corpuscular Hemoglobin 31 25-34 pg Mean Corpuscular Hemoglobin Concent 35 32-36 g/dL Red Cell Distribution Width 12.4 10.0-14.5 % Platelet Count 308 130-400 10^3/uL Mean Platelet Volume 10.0 9.0-12.2 fL Immature Granulocyte % (Auto) 0 % Neutrophils (%) (Auto) 73 42-75 % Lymphocytes (%) (Auto) 20 12-44 % Monocytes (%) (Auto) 5 0-12 % Eosinophils (%) (Auto) 1 0-10 % Basophils (%) (Auto) 0 0-10 % Neutrophils # (Auto) 9.1 H 1.8-7.8 10^3/uL Lymphocytes # (Auto) 2.5 1.0-4.0 10^3/uL Monocytes # (Auto) 0.7 0.0-1.0 10^3/uL Eosinophils # (Auto) 0.1 0.0-0.3 10^3/uL Basophils # (Auto) 0.0 0.0-0.1 10^3/uL Immature Granulocyte # (Auto) 0.1 0.0-0.1 10^3/uL Sodium Level 135 135-145 MMOL/L Potassium Level 3.6 3.6-5.0 MMOL/L Chloride Level 104 98-107 MMOL/L Carbon Dioxide Level 21 21-32 MMOL/L Anion Gap 10 5-14 MMOL/L Blood Urea Nitrogen 7 7-18 MG/DL Creatinine 0.64 0.60-1.30 MG/DL Estimat Glomerular Filtration Rate 120 BUN/Creatinine Ratio 11 Glucose Level 88 70-105 MG/DL Calcium Level 10.0 8.5-10.1 MG/DL Corrected Calcium 8.5-10.1 MG/DL Total Bilirubin 0.4 0.1-1.0 MG/DL Aspartate Amino Transf (AST/SGOT) 20 5-34 U/L Alanine Aminotransferase (ALT/SGPT) 56 H 0-55 U/L Alkaline Phosphatase 71 40-136 U/L Total Protein 8.3 H 6.4-8.2 GM/DL Albumin 4.7 H 3.2-4.5 GM/DL Lipase 23 8-78 U/L Human Chorionic Gonadotropin, Quant [id number] H <5 MIU/ML My Orders Orders - DANA GOULD MD Ed Iv/Invasive Line Start (05/03/22 19:11) Cbc With Automated Diff (05/03/22 19:11) Hcg,Quantitative (05/03/22 19:11) Comprehensive Metabolic Panel (05/03/22 19:11) Lipase (05/03/22 19:11) Ua Culture If Indicated (05/03/22 19:11) Ns Iv 1000 Ml (Sodium Chloride 0.9%) (05/03/22 20:00) Acetaminophen Tablet (Tylenol Tablet) (05/03/22 20:00) Simethicone Tablet (Mylicon Chewable Tab (05/03/22 22:15) Medications Given in ED Current Medications Medications Dose Ordered Sig/Gerson Route Start Time Stop Time Status Last Admin Dose Admin Acetaminophen 1,000 mg ONCE ONCE PO 05/03/22 20:00 05/03/22 20:01 DC 05/03/22 20:05 1,000 MG Vital Signs/I&O 05/03/22 17:45 Temp 36.8 Pulse 72 Resp 16 B/P (MAP) 118/79 (92) Pulse Ox 100 O2 Delivery Room Air Capillary Refill : Less Than 3 Seconds Blood Pressure Mean: 92 Progress Note : Time: 22:14 Progress Note Patient states that she feels better. however still with significant pain in LLQ. Bedside u/s shows fetus in the uterus; + cardiac activity noted. A "FAST" was done, no free fluid noted by me. I did see lots of gas in the colon. On exam she is quite bloated. Suspect this is "gasseous" pain. SHe will be given some simethicone. She's up to the bathroom to void at this time. I asked her to try and poop. Her labs show mild leukocytosis. She is not febrile or vomiting. Home with instructions to return if worsening/fever/vomiting. Departure Impression Primary Impression: Abdominal pain Qualified Codes: R10.32 - Left lower quadrant pain Additional Impression: 8 weeks gestation of Disposition: HOME, SELF-CARE Condition: Stable Departure-Patient Inst. Referrals: JOHN NEIL MD (PCP/Family) Primary Care Physician Patient Instructions: Gas and Bloating, - The Third Month, Stomach Pain in Early Add. Discharge Instructions: [place] el mostrador "Gas X" dos veces al da. Tambin puede marychuy Tylenol extra gin, 2 tabletas, cada 6 horas para el dolor. Si tiene fiebre, vmitos o dolor peor en las prximas 12 a 24 horas, regrese al Departamento de Emergencias para wilfredo nueva evaluacin. Comience a marychuy wilfredo vitamina todos los figueroa. Rachell nunu agua para mantenerse elgin hidratado. Take over the counter "Gas X" twice a day. You can also take extra strength Tylenol, 2 tablets, every 6 hours for pain. If you get a fever, vomiting or worse pain, please come back to the Emergency Department for re-evaluation. Start taking a vitamin every day. Drink lots of water to stay well hydrated. Copy Copies To 1: JOHN NIEL MD, KATHRYN M MD May 03, 2022 18:56
[2022-05-03 19:18] LABS: BILIRUBIN,URINE NEGATIVE (NEGATIVE); CLARITY,URINE CLEAR; COLOR,URINE YELLOW; GLUCOSE, URINE (UA) NEGATIVE (NEGATIVE); KETONES,URINE NEGATIVE (NEGATIVE); LEUKOCYTE ESTERASE ,URINE TRACE (NEGATIVE); NITRITE,URINE NEGATIVE (NEGATIVE); PROTEIN,URINE NEGATIVE (NEGATIVE)
[2022-05-03 19:20] LABS: BASOPHILS % (AUTO) 0 % (0-10); EOSINOPHILS # (AUTO) 0.1 10^3/uL (0.0-0.3); EOSINOPHILS % (AUTO) 1 % (0-10); HEMATOCRIT 39 % (35-52); HEMOGLOBIN 13.6 g/dL (11.5-16.0); LYMPHOCYTES # (AUTO) 2.5 10^3/uL (1.0-4.0); LYMPHOCYTES % (AUTO) 20 % (12-44); MEAN CORPUSCULAR HEMOGLOBIN 31 pg (25-34); MEAN CORPUSCULAR HGB CONC 35 g/dL (32-36); MEAN CORPUSCULAR VOLUME 89 fL (80-99); MONOCYTES # (AUTO) 0.7 10^3/uL (0.0-1.0); MONOCYTES % (AUTO) 5 % (0-12); NEUTROPHILS # (AUTO) 9.1 10^3/uL (1.8-7.8); NEUTROPHILS % (AUTO) 73 % (42-75); PLATELET COUNT 308 10^3/uL (130-400); WHITE BLOOD COUNT 12.5 10^3/uL (4.3-11.0)
[2022-05-03 19:26] LABS: BACTERIA,URINE TRACE /HPF
[2022-05-03 19:28] LABS: ALBUMIN 4.7 GM/DL (3.2-4.5); CHLORIDE 104 MMOL/L (98-107); POTASSIUM 3.6 MMOL/L (3.6-5.0); SODIUM 135 MMOL/L (135-145)
[2022-05-03 19:30] LABS: GLUCOSE 88 MG/DL (70-105); TOTAL PROTEIN 8.3 GM/DL (6.4-8.2)
[2022-05-03 19:31] LABS: CARBON DIOXIDE 21 MMOL/L (21-32)
[2022-05-03 19:32] LABS: BILIRUBIN,TOTAL 0.4 MG/DL (0.1-1.0)
[2022-05-03 19:34] LABS: ALKALINE PHOSPHATASE 71 U/L (40-136); CREATININE SERUM 0.64 MG/DL (0.60-1.30); GFR ESTIMATED 120
[2022-05-03 19:35] LABS: BUN/CREATININE RATIO 11
[2022-05-03 19:37] LABS: ALANINE AMINOTRANSFERASE 56 U/L (0-55); LIPASE 23 U/L (8-78)
[2022-05-03] MEDS ORDERED: NS IV 1000 ML 1,000 ML IV SCH (20:00)
[2022-05-03] MEDS ORDERED: ACETAMINOPHEN 500 MG TAB (TYLENOL) PO ONE (20:00)
[2022-05-03] MEDS ORDERED: SIMETHICONE 80 MG (MYLICON) CHEW PO ONE (22:15)
[2022-05-03 22:37] VITALS: BP 117/80
== END 2022-05-03 22:37 | disposition home or self-care (01) ==
LOC: EDUNIT# 17:30 → ER 17:32
DX: O26.891 Other specified pregnancy related conditions, first trimester (principal); R10.32 Left lower quadrant pain; O99.111 Other diseases of the blood and blood-forming organs and certain disorders involving the immune mechanism complicating pregnancy, first trimester; D72.829 Elevated white blood cell count, unspecified; Z3A.08 8 weeks gestation of pregnancy; Z28.310 Unvaccinated for COVID-19
CPT/HCPCS: 36415; 80053; 81000; 83690; 84702; 85025; 99284

== ENCOUNTER 2022-09-11 20:10 | Outpatient (CLI) | payer SELFPAY ==
[~2022-09-11] VITALS: Ht 149 cm; Wt 57.7 kg
[2022-09-11 20:34] LABS: BILIRUBIN,URINE NEGATIVE (NEGATIVE); CLARITY,URINE CLEAR; COLOR,URINE YELLOW; GLUCOSE, URINE (UA) NEGATIVE (NEGATIVE); KETONES,URINE NEGATIVE (NEGATIVE); LEUKOCYTE ESTERASE ,URINE 1+ (NEGATIVE); NITRITE,URINE NEGATIVE (NEGATIVE); PROTEIN,URINE NEGATIVE (NEGATIVE)
[2022-09-11 20:38] VITALS: BP 120/73
[2022-09-11 20:53] LABS: BACTERIA,URINE MODERATE /HPF
[2022-09-11] MEDS ORDERED: ACETAMINOPHEN 500 MG TAB (TYLENOL) ONE (21:14)
[2022-09-11] MEDS ORDERED: CEPHALEXIN 250 MG (KEFLEX) CAP PO ONE ×2 (21:15→21:30)
[2022-09-11] MEDS ORDERED: ACETAMINOPHEN 500 MG TAB (TYLENOL) PO ONE (21:15)
[2022-09-11] MEDS ORDERED: CEPHALEXIN 250 MG (KEFLEX) CAP PO SCH (21:15)
[2022-09-11] MEDS ORDERED: PREN-48 PO (22:18)
--- NOTE | 2022-09-12 07:57 | Physician Query-Final Dx ---
Clinic Account Progress/Dx Physician Query: Please give diagnosis Please include # weeks gestation Date of Service September 11, 2022 at 20:10 ,MaySeptember 12, 2022 07:57
== END 2022-09-11 22:28 ==
LOC: WSo 20:10 → LDRP 20:11 → WSo 22:28
PROVIDERS: ATTEND Family Medicine
DX: O99.891 Other specified diseases and conditions complicating pregnancy (principal); R10.9 Unspecified abdominal pain; Z3A.00 Weeks of gestation of pregnancy not specified
CPT/HCPCS: 81000; 87088; 99213

== ENCOUNTER 2022-09-26 20:58 | Outpatient (CLI) | payer SELFPAY ==
[~2022-09-26] VITALS: Ht 145 cm; Wt 59.7 kg
[~2022-09-26 20:58] MED LIST changes: +PREN-48 PO
[2022-09-26] MEDS ORDERED: LACTATED RINGERS 1,000 ML IV SCH (21:30)
[2022-09-26] MEDS ORDERED: BETAMETHASONE ACE/NA PHOS 6 MG/ML (CELESTONE SOLUSPAN) ONE (21:48)
[2022-09-26 21:52] LABS: BILIRUBIN,URINE NEGATIVE (NEGATIVE); CLARITY,URINE CLEAR; COLOR,URINE YELLOW; GLUCOSE, URINE (UA) NEGATIVE (NEGATIVE); KETONES,URINE NEGATIVE (NEGATIVE); LEUKOCYTE ESTERASE ,URINE NEGATIVE (NEGATIVE); NITRITE,URINE NEGATIVE (NEGATIVE); PROTEIN,URINE NEGATIVE (NEGATIVE)
[2022-09-26 22:00] LABS: AMORPHOUS SEDIMENT,UR RARE AMOR URATES /LPF; BACTERIA,URINE TRACE /HPF
[2022-09-26 22:12] VITALS: BP 125/81
[2022-09-26] MEDS ORDERED: hydrOXYzine (VISTARIL/ATARAX) 25 MG capsule/tablet PO ONE (22:30)
[2022-09-26] MEDS ORDERED: ACETAMINOPHEN 325 MG TABLET PO ONE (22:30)
--- NOTE | 2022-09-27 08:28 | Physician Query-Final Dx ---
LAVELL09/27/22 0828: Clinic Account Progress/Dx Physician Query: Please give diagnosis Please include # weeks gestation Date of Service September 26, 2022 at 20:58 TREY ARCHIBALD MD 09/27/22 1620: Clinic Account Progress/Dx DIAGNOSIS: Diagnosis ABdominal pain complicating 30 weeks gestation cervical dilation LAVELL,MaySeptember 27, 2022 08:28 TREY ARCHIBALD MD September 27, 2022 16:20
[2022-09-27] MEDS ORDERED: BETAMETHASONE ACE/NA PHOS 6 MG/ML (CELESTONE SOLUSPAN) IM SCH (09:00)
[2022-09-30] MEDS ORDERED: POLY17PO54 PO (08:20)
[2022-09-30] MEDS ORDERED: HYDR-34 PO (08:20)
[2022-09-30] MEDS ORDERED: SUCR1TAB PO (08:20)
== END 2022-09-26 23:00 | disposition home or self-care (01) ==
LOC: WSo 20:58 → LDRP 20:59 → WSo 23:00
PROVIDERS: ATTEND Family Medicine
DX: O62.9 Abnormality of forces of labor, unspecified (principal); Z3A.30 30 weeks gestation of pregnancy
CPT/HCPCS: 81000; 96360; 96372; G0463; 99213

== ENCOUNTER 2022-09-27 14:16 | Observation (INO) | payer SELFPAY ==
[~2022-09-27] VITALS: Ht 149.9 cm; Wt 57.9 kg
[2022-09-27 14:35] VITALS: BP 122/69
[2022-09-27 14:52] LABS: BILIRUBIN,URINE NEGATIVE (NEGATIVE); CLARITY,URINE SL CLOUDY; COLOR,URINE YELLOW; GLUCOSE, URINE (UA) NEGATIVE (NEGATIVE); KETONES,URINE NEGATIVE (NEGATIVE); LEUKOCYTE ESTERASE ,URINE NEGATIVE (NEGATIVE); NITRITE,URINE NEGATIVE (NEGATIVE); PROTEIN,URINE NEGATIVE (NEGATIVE)
[2022-09-27 14:59] LABS: AMORPHOUS SEDIMENT,UR LARGE AMOR PHOSPHATE /LPF; BACTERIA,URINE NEGATIVE /HPF
--- NOTE | 2022-09-27 18:53 | Diagnostic Imaging Report ---
INDICATION: Abdominal pain. Check placenta and cervical length. EXAMINATION: Ultrasound greater than 14 weeks, 09/27/2022. FINDINGS: Amniotic fluid index is 16.2 cm, considered normal. Placenta posterior with no previa visualized. Maternal cervical length is 4.8 cm. Fetus is currently breech in positioning. Heart rate approximately 155 beats per minute. anatomy not evaluated today. IMPRESSION: 1. Single live intrauterine gestation currently breech in positioning. 2. Placenta posterior with maternal cervical length of 4.8 cm. Dictated by: Dictated on workstation # [id number]
--- NOTE | 2022-09-27 18:55 | Diagnostic Imaging Report ---
INDICATION: Abdominal pain 30 weeks . EXAMINATION: Ultrasound abdomen, limited, 09/27/2022. FINDINGS: Portions of the examination limited due to bowel gas and status, per the technologist. Visualized liver unremarkable. No intrahepatic biliary dilatation is seen. The gallbladder appears contracted. No pericholecystic fluid is seen. The gallbladder wall thickening could be due to contracted status. Tiny stone is difficult to exclude. Common duct is normal in size. Pancreas poorly seen. Visualized aorta and IVC unremarkable. Right kidney 10.1 cm in length. Prominence of the right ureter is noted but could be due to status. No ascites visualized. IMPRESSION: 1. Mild right-sided hydronephrosis which could be due to the patient's positive status correlate with history and symptoms. 2. Gallbladder contracted and poorly characterized. Wall thickening may be due to its contracted status with no pericholecystic fluid appreciated. Dictated by: Dictated on workstation # [id number]
[2022-09-27 19:08] LABS: BASOPHILS % (AUTO) 0 % (0-10); EOSINOPHILS % (AUTO) 0 % (0-10); HEMATOCRIT 33 % (35-52); HEMOGLOBIN 11.3 g/dL (11.5-16.0); LYMPHOCYTES # (AUTO) 1.4 10^3/uL (1.0-4.0); LYMPHOCYTES % (AUTO) 8 % (12-44); MEAN CORPUSCULAR HEMOGLOBIN 31 pg (25-34); MEAN CORPUSCULAR HGB CONC 34 g/dL (32-36); MEAN CORPUSCULAR VOLUME 92 fL (80-99); MEAN PLATELET VOLUME 10.6 fL (9.0-12.2); MONOCYTES # (AUTO) 0.8 10^3/uL (0.0-1.0); MONOCYTES % (AUTO) 5 % (0-12); NEUTROPHILS # (AUTO) 14.7 10^3/uL (1.8-7.8); NEUTROPHILS % (AUTO) 86 % (42-75); PLATELET COUNT 214 10^3/uL (130-400); WHITE BLOOD COUNT 17.1 10^3/uL (4.3-11.0)
[2022-09-27 19:17] LABS: ALBUMIN 3.5 GM/DL (3.2-4.5)
[2022-09-27 19:18] LABS: CALCIUM 9.3 MG/DL (8.5-10.1)
[2022-09-27 19:19] LABS: TOTAL PROTEIN 6.7 GM/DL (6.4-8.2)
[2022-09-27 19:21] LABS: BILIRUBIN,TOTAL 0.3 MG/DL (0.1-1.0)
[2022-09-27 19:23] LABS: CREATININE SERUM 0.59 MG/DL (0.60-1.30)
[2022-09-27 19:25] VITALS: BP 100/63
[2022-09-27 19:26] LABS: BAND NEUTROPHILS 10 %; LYMPHOCYTES % (MANUAL) 7 %; MONOCYTES % (MANUAL) 4 %; NEUTROPHILS % (MANUAL) 75 %; REACTIVE LYMPHOCYTES 4 %
[2022-09-27 19:35] LABS: POTASSIUM 3.7 MMOL/L (3.6-5.0)
[2022-09-27] MEDS ORDERED: NS IV 1000 ML 1,000 ML IV SCH (20:00)
[2022-09-27] MEDS ORDERED: HYDROcodone/APAP 5 MG/325 MG (LORTAB) TAB ONE (20:12)
[2022-09-27] MEDS: HYDROcodone/APAP 5 MG/325 MG (LORTAB) TAB PO PRN (20:14)
[2022-09-27] MEDS ORDERED: NS IV 1000 ML 1,000 ML ONE (20:19)
[2022-09-27] MEDS ORDERED: BETAMETHASONE ACE/NA PHOS 6 MG/ML (CELESTONE SOLUSPAN) ONE (21:00)
[2022-09-27] MEDS: NS IV 1000 ML 1,000 ML IV SCH (21:37)
[2022-09-27 21:50] VITALS: BP 123/76
[2022-09-27] MEDS ORDERED: hydrOXYzine (VISTARIL/ATARAX) 25 MG capsule/tablet PO ONE (22:30)
[2022-09-27 23:00] VITALS: BP 109/57
[2022-09-28] VITALS (15 sets, daily range): BP systolic 92–116; BP diastolic 52–68
[2022-09-28] MEDS ORDERED: NS IV 1000 ML 1,000 ML IV SCH
[2022-09-28] MEDS: HYDROcodone/APAP 5 MG/325 MG (LORTAB) TAB PO PRN ×4 (00:04→15:21)
[2022-09-28 05:27] LABS: BASOPHILS % (AUTO) 0 % (0-10); EOSINOPHILS % (AUTO) 0 % (0-10); HEMATOCRIT 30 % (35-52); LYMPHOCYTES # (AUTO) 1.1 10^3/uL (1.0-4.0); LYMPHOCYTES % (AUTO) 7 % (12-44); MEAN CORPUSCULAR HEMOGLOBIN 31 pg (25-34); MEAN CORPUSCULAR HGB CONC 33 g/dL (32-36); MEAN CORPUSCULAR VOLUME 94 fL (80-99); MEAN PLATELET VOLUME 10.7 fL (9.0-12.2); MONOCYTES # (AUTO) 0.2 10^3/uL (0.0-1.0); MONOCYTES % (AUTO) 1 % (0-12); NEUTROPHILS # (AUTO) 14.2 10^3/uL (1.8-7.8); NEUTROPHILS % (AUTO) 90 % (42-75); PLATELET COUNT 184 10^3/uL (130-400); WHITE BLOOD COUNT 15.8 10^3/uL (4.3-11.0)
[2022-09-28 05:44] LABS: ALBUMIN 3.1 GM/DL (3.2-4.5); POTASSIUM 3.8 MMOL/L (3.6-5.0)
[2022-09-28 05:46] LABS: CALCIUM 8.6 MG/DL (8.5-10.1)
[2022-09-28 05:47] LABS: TOTAL PROTEIN 5.9 GM/DL (6.4-8.2)
[2022-09-28 05:49] LABS: BILIRUBIN,TOTAL 0.3 MG/DL (0.1-1.0)
[2022-09-28 05:50] LABS: CREATININE SERUM 0.55 MG/DL (0.60-1.30)
[2022-09-28] MEDS: NS IV 1000 ML 1,000 ML IV SCH ×2 (06:09→17:00)
[2022-09-28] MEDS ORDERED: BETAMETHASONE ACE/NA PHOS 6 MG/ML (CELESTONE SOLUSPAN) IM ONE (09:00)
--- NOTE | 2022-09-28 09:17 | History & Physical-OB ---
OB - Chief Complaint & HPI Date/Time Date of Admission: Date of Admission: Date seen by a Provider: September 28, 2022 Time Seen by a Provider: 08:30 Chief Complaint/History OB-Reason for Admission/Chief: intractable abdominal pain complicating Hx : 2 Hx Para: 1 Expected Date of Delivery: Dec 04, 2022 Gestational Age in Weeks: 30 Gestational Age in Days: 3 History of Labs O+, antibody neg, RI. HIV/HepB/RPR/HepC NR. GC/chlamydia neg. 1 hour glucola neg. Other at 30w2d presented to labor and delivery due to abdominal pain. She states starting Saturday (4 days ago) she has had pain in lower abdomen, vagina, waistline and around to her back. She feels like the baby is trying to break out. She feels pain increased when the baby moves and pelvic pressure like she is trying to get out. She denies fever, nasal congestion, sore throat or cough. She does admit headache starting last night and blurry vision that she attributes to dry eyes from not being able to rest due to pain. She admits pain with urination and she saw blood in her urine 2 days ago, and had very small amount of spotting twice yesterday. She denies nausea, vomiting, diarrhea or constipation. She has pain in her calves and her arms which also started around the same time as the rest of her symptoms. She denies joint pains or rash. She denies complications with this prior to this, however on chart review she was admitted very early on due to concern for possible ectopic which was ruled out with normal US the following week, but did have left ovarian mass thought to be cyst. Per clinic notes she has complained of abdominal pain a few times throughout her routine visits and in her previous she also was seen with abdominal pain and neurologic symptoms. On Saturday she came in and was thought to be complaining of contractions and had a couple of initial contractions on monitor and reported previous delivery at 30 weeks and was found to be dilated to 2 cm, so betamethasone was given, but she then had no further contractions and no cervical change. Second dose of beta was given last night after she was readmitted with the above symptoms. She says this is similar to her last when she was induced early, she believes at 30 weeks. However, on further questioning she states she was induced due to running out of amniotic fluid, not similar pain. Also per chart review, she was induced at 36 weeks, and the did have it's entire hospital course here which indicates she was not less than 34 weeks. Allergies and Home Medications Allergies Coded Allergies: No Known Drug Allergies (Unverified , 10/25/18) Patient Home Medication List Home Medication List Reviewed: Yes Vit No.78/Iron/FA (Prenatabs FA Tablet) 29 Mg Iron-1 Mg Tablet, 1 EACH PO DAILY, (Reported) Entered as Reported by: ROM VALENZUELA on 09/11/22 1575 OB - History Hx of Present Care: Yes Ultrasounds: Normal mid trimester US Information Induced Hypertension: No Maternal Gestational Diabetes: No Hemorrhage: No Obstetrical History Hx : 2 Hx Para: 1 Hx # Term Pregnancies: 0 Hx # Pregnancies: 1 Number of Living Children: 1 Hx Termination: No Hx Multiple Gestation: No Hx Ectopic : No Hx Stillbirth: No Hx Complication: Yes (oligohydramnios in first ) Hx Induced Hypertens: No Hx Maternal Gestational Diabet: No Hx Hemorrhage: No Delivery History Hx Dystocia: No Hx Forceps Assisted Delivery: No Hx Vacuum Extraction Assisted: No Hx Placenta Abnormality: No Hx Distress: No Hx Large For Gestational Age I: No Hx Small for Gestational Age I: No Hx Section: No Hx Vaginal Delivery Post C-Sec: No Hx Blood Disorders: No Adverse Rxn to Tranfusion: No Patient Past Medical History PMHx: denies SurgHx: appendectomy and right oophorectomy for cyst Social History/Family History Alcohol Use: Denies Use Recreational Drug Use: No Smoking Cessation: Never smoker 2nd Hand Smoke Exposure: No Immunizations Hepatitis A: No Hepatitis B: Yes Tetanus Booster (TDap): Less than 5yrs Rubella: immune RPR/VDRL: Negative GBS Status: Unknown HBsAG: Negative OB - Admission Exam Physical Exam Vitals: Vital Signs 09/28/22 09/28/22 04:00 07:00 Temp 36.0 Pulse 87 Resp 16 B/P (MAP) 101/56 (71) Pulse Ox 99 O2 Delivery Room Air HEENT: NCAT Heart: Rhythm Normal Lungs: Clear Abdomen: Soft (soft, uterus soft, NABS, able to press down with stethoscope with mild ttp diffusely, significantly more marked ttp diffusely with palpation, greatest in epigastric and RUQ and LUQ. Flank pain on left to palpation.) Extremities: Other (no edema, ttp both calves entire length, 5/5 strength in upper and lower extremeties, ttp posterior upper arms) Heart Rate: 150's Decelerations: No Decelerations Short Term Variability: Present Contractions on Admission: None Labs Laboratory Tests Test 09/27/22 14:46 09/27/22 18:56 09/27/22 23:00 09/27/22 23:25 Range/Units Urine Color YELLOW Urine Clarity SL CLOUDY Urine pH 7.0 5-9 Urine Specific [place] 1.010 L 1.016-1.022 Urine Protein NEGATIVE NEGATIVE Urine Glucose (UA) NEGATIVE NEGATIVE Urine Ketones NEGATIVE NEGATIVE Urine Nitrite NEGATIVE NEGATIVE Urine Bilirubin NEGATIVE NEGATIVE Urine Urobilinogen 0.2 < = 1.0 MG/DL Urine Leukocyte Esterase NEGATIVE NEGATIVE Urine RBC (Auto) NEGATIVE NEGATIVE Urine RBC NONE /HPF Urine WBC NONE /HPF Urine Crystals PRESENT H /LPF Urine Amorphous Sediment LARGE JARRETT PHOSPHATE H /LPF Urine Bacteria NEGATIVE /HPF Urine Casts NONE /LPF Urine Mucus NEGATIVE /LPF Urine Culture Indicated NO White Blood Count 17.1 H 4.3-11.0 10^3/uL Red Blood Count 3.64 L 3.80-5.11 10^6/uL Hemoglobin 11.3 L 11.5-16.0 g/dL Hematocrit 33 L 35-52 % Mean Corpuscular Volume 92 80-99 fL Mean Corpuscular Hemoglobin 31 25-34 pg Mean Corpuscular Hemoglobin Concent 34 32-36 g/dL Red Cell Distribution Width 13.3 10.0-14.5 % Platelet Count 214 130-400 10^3/uL Mean Platelet Volume 10.6 9.0-12.2 fL Immature Granulocyte % (Auto) 1 % Neutrophils (%) (Auto) 86 H 42-75 % Lymphocytes (%) (Auto) 8 L 12-44 % Monocytes (%) (Auto) 5 0-12 % Eosinophils (%) (Auto) 0 0-10 % Basophils (%) (Auto) 0 0-10 % Neutrophils # (Auto) 14.7 H 1.8-7.8 10^3/uL Lymphocytes # (Auto) 1.4 1.0-4.0 10^3/uL Monocytes # (Auto) 0.8 0.0-1.0 10^3/uL Eosinophils # (Auto) 0.0 0.0-0.3 10^3/uL Basophils # (Auto) 0.0 0.0-0.1 10^3/uL Immature Granulocyte # (Auto) 0.2 H 0.0-0.1 10^3/uL Neutrophils % (Manual) 75 % Lymphocytes % (Manual) 7 % Monocytes % (Manual) 4 % Band Neutrophils 10 % Reactive Lymphocytes 4 % Sodium Level 136 135-145 MMOL/L Potassium Level 3.7 3.6-5.0 MMOL/L Chloride Level 106 98-107 MMOL/L Carbon Dioxide Level 19 L 21-32 MMOL/L Anion Gap 11 5-14 MMOL/L Blood Urea Nitrogen 6 L 7-18 MG/DL Creatinine 0.59 L 0.60-1.30 MG/DL Estimat Glomerular Filtration Rate 122 BUN/Creatinine Ratio 10 Glucose Level 131 H 70-105 MG/DL Calcium Level 9.3 8.5-10.1 MG/DL Corrected Calcium 9.7 8.5-10.1 MG/DL Total Bilirubin 0.3 0.1-1.0 MG/DL Aspartate Amino Transf (AST/SGOT) 23 5-34 U/L Alanine Aminotransferase (ALT/SGPT) 38 0-55 U/L Alkaline Phosphatase 124 40-136 U/L Total Protein 6.7 6.4-8.2 GM/DL Albumin 3.5 3.2-4.5 GM/DL Lipase 23 8-78 U/L Lactic Acid Level 2.54 *H 0.50-2.00 MMOL/L Test 09/28/22 01:25 09/28/22 05:11 09/28/22 07:34 Range/Units Lactic Acid Level 2.05 *H 2.92 *H 2.89 *H 0.50-2.00 MMOL/L White Blood Count 15.8 H 4.3-11.0 10^3/uL Red Blood Count 3.22 L 3.80-5.11 10^6/uL Hemoglobin 10.0 L 11.5-16.0 g/dL Hematocrit 30 L 35-52 % Mean Corpuscular Volume 94 80-99 fL Mean Corpuscular Hemoglobin 31 25-34 pg Mean Corpuscular Hemoglobin Concent 33 32-36 g/dL Red Cell Distribution Width 13.5 10.0-14.5 % Platelet Count 184 130-400 10^3/uL Mean Platelet Volume 10.7 9.0-12.2 fL Immature Granulocyte % (Auto) 2 % Neutrophils (%) (Auto) 90 H 42-75 % Lymphocytes (%) (Auto) 7 L 12-44 % Monocytes (%) (Auto) 1 0-12 % Eosinophils (%) (Auto) 0 0-10 % Basophils (%) (Auto) 0 0-10 % Neutrophils # (Auto) 14.2 H 1.8-7.8 10^3/uL Lymphocytes # (Auto) 1.1 1.0-4.0 10^3/uL Monocytes # (Auto) 0.2 0.0-1.0 10^3/uL Eosinophils # (Auto) 0.0 0.0-0.3 10^3/uL Basophils # (Auto) 0.0 0.0-0.1 10^3/uL Immature Granulocyte # (Auto) 0.2 H 0.0-0.1 10^3/uL Sodium Level 136 135-145 MMOL/L Potassium Level 3.8 3.6-5.0 MMOL/L Chloride Level 110 H 98-107 MMOL/L Carbon Dioxide Level 14 L 21-32 MMOL/L Anion Gap 12 5-14 MMOL/L Blood Urea Nitrogen 5 L 7-18 MG/DL Creatinine 0.55 L 0.60-1.30 MG/DL Estimat Glomerular Filtration Rate 124 BUN/Creatinine Ratio 9 Glucose Level 130 H 70-105 MG/DL Calcium Level 8.6 8.5-10.1 MG/DL Corrected Calcium 9.3 8.5-10.1 MG/DL Total Bilirubin 0.3 0.1-1.0 MG/DL Aspartate Amino Transf (AST/SGOT) 21 5-34 U/L Alanine Aminotransferase (ALT/SGPT) 34 0-55 U/L Alkaline Phosphatase 109 40-136 U/L Total Protein 5.9 L 6.4-8.2 GM/DL Albumin 3.1 L 3.2-4.5 GM/DL OB - Assessment/Plan/Diagnosis Assessment Admission Dx Intractable abdominal pain complicating Admission Status: Observation Plan Problems: (1) Abdominal pain Assessment & Plan: Ob US reassuring- posterior placenta without abnormality noted, cervix 4.2 cm long. Per nursing, SVE 2 cm dilated has been unchanged since Saturday evening and is not luma on monitor. -GB US pending -Has right hydronephrosis, possibly physiologic due to . No hematuria or evidence of urinary tract infection, still considering nephrolithiasis as possible pain generator. -If GB US unrevealing and pain remains intractable (has not even been controlled with hydrocodone), consider CT or MRI abdomen, patient prefers MRI if possible. -Lower concern for intraamniotic infection given heart rate has been reassuring and she has been afebrile and fever is reported to be present in 100% of cases of IAI. -Lower concern for placental abruption with no bleeding, no contractions, reassuring heart tones over a long period and normal US. -Concern for rare causes such as intraabdominal aneurysm, but vitals have been stable for at least 2 days and pain is diffuse. No evidence of rectus sheath/abdominal wall abnormality on exam. Qualifiers: Qualified Codes: R10.84 - Generalized abdominal pain (2) Elevated lactic acid level Assessment & Plan: Uncertain etiology, mild elevation, improved with bolus of fluid initially but continues to hover above 2. As above, no clear source of infection, continue IVF and work-up as above. (3) Muscle ache of extremity Assessment & Plan: Check CK. Will check flu and COVID swabs given constellation of symptoms although no URI symptoms present. (4) Leukocytosis Assessment & Plan: Possibly secondary to betamethasone given Saturday evening, second dose evening as first admit was suspicious for labor. No source of infection found as of yet. (5) Headache (6) 30 weeks gestation of TREY ARCHIBALD MD September 28, 2022 09:17
[2022-09-28] MEDS ORDERED: FAMOTIDINE 20MG/2ML IV (PEPCID) IVP SCH (09:30)
--- NOTE | 2022-09-28 10:31 | Diagnostic Imaging Report ---
PROCEDURE: US Gallbladder. TECHNIQUE: Multiple real-time grayscale images were obtained over the right upper quadrant in various projections. INDICATION: Abdominal pain. Patient is 30 weeks . FINDINGS: Liver is upper limits of normal in size at 17.5 cm. Portal vein is patent and shows normal direction of flow. The liver does show some increased echogenicity suggestive of hepatic steatosis. No liver mass is identified. Gallbladder is without stones or sludge. No wall thickening or biliary ductal dilatation is seen. Pancreas unremarkable. Aorta and IVC are unremarkable. Right kidney does have a 7 mm x 3 mm echogenic focus centrally. There is some very mild hydronephrosis on the right side. There is no ascites. IMPRESSION: 1. Hepatic steatosis. 2. No evidence of cholelithiasis or acute cholecystitis. 3. Next number probable small nonobstructing right renal calculus. There is very mild right-sided hydronephrosis as well, which could be secondary to hydronephrosis of . Dictated by: Dictated on workstation # [id number]
--- NOTE | 2022-09-28 10:56 | Diagnostic Imaging Report ---
PROCEDURE: US Venous Lower Ext [place]. TECHNIQUE: Multiple real-time grayscale images were obtained over the lower extremities in various projections, bilaterally. Additional duplex Doppler and color Doppler images were also obtained. INDICATION: Bilateral leg pain. Patient is 30 weeks . There is no evidence of right or left lower extremity DVT. Both lower extremity deep venous systems demonstrate normal compressibility with normal response to augmentation and Valsalva. No fluid collection or mass is detected. IMPRESSION: No evidence of right or left lower extremity DVT. Dictated by: Dictated on workstation # [id number]
[2022-09-28] MEDS ORDERED: SUCRALFATE 1 GM (CARAFATE) TAB PO SCH (11:00)
--- NOTE | 2022-09-28 13:54 | Diagnostic Imaging Report ---
PROCEDURE: CT abdomen and pelvis without contrast. TECHNIQUE: Multiple contiguous axial images were obtained through the abdomen and pelvis without the use of intravenous contrast. Auto Exposure Controls were utilized during the CT exam to meet ALARA standards for radiation dose reduction. INDICATION: 30 weeks patient with intractable abdominal pain. COMPARISON: No prior studies are available for comparison. The lung bases are clear. The liver and gallbladder are unremarkable. There is no biliary ductal dilatation. The pancreas and spleen are unremarkable. No adrenal mass is identified. Tiny calcifications in the lower pole right kidney are noted consistent with nonobstructing calculi. No definite ureteral calculi or hydronephrosis seen. Aorta is nonaneurysmal. There is an intrauterine fetus in a breech presentation. The small and large bowel loops are normal caliber. No inflammatory changes are seen. There is no free fluid or fluid collection identified. Bladder is unremarkable. IMPRESSION: 1. Tiny nonobstructing right renal calculi. No ureteral calculi or hydronephrosis detected. 2. Gravid uterus with fetus in a breech presentation. No definite complicating features are seen. 3. No acute abnormality in abdomen or pelvis is identified. Dictated by: Dictated on workstation # [id number]
[2022-09-28] MEDS: morphine INJ 10 MG/ML 1ML (SYR OR VIAL) IVP PRN ×2 (13:59→16:59)
[2022-09-28] MEDS: cefTRIAXone IV/IM 1,000 MG in NS (IVPB) 50 ML IV SCH (14:46)
[2022-09-28] MEDS ORDERED: SUCRALFATE 1 GM (CARAFATE) TAB ONE (16:13)
[2022-09-28] MEDS: SUCRALFATE 1 GM (CARAFATE) TAB PO SCH ×2 (16:16→23:16)
[2022-09-28] MEDS: HYDROcodone/APAP 7.5 MG/325 MG (LORTAB, LORCET PLUS) TABLET PO PRN (18:34)
[2022-09-28] MEDS: FAMOTIDINE 20MG/2ML IV (PEPCID) IVP SCH (23:16)
[2022-09-29] VITALS (7 sets, daily range): BP systolic 87–119; BP diastolic 52–63
[2022-09-29] MEDS: morphine INJ 10 MG/ML 1ML (SYR OR VIAL) IVP PRN (00:06)
[2022-09-29] MEDS: HYDROcodone/APAP 7.5 MG/325 MG (LORTAB, LORCET PLUS) TABLET PO PRN ×4 (00:06→23:25)
[2022-09-29] MEDS: NS IV 1000 ML 1,000 ML IV SCH ×3 (00:12→17:22)
[2022-09-29 06:22] LABS: BASOPHILS % (AUTO) 0 % (0-10); EOSINOPHILS % (AUTO) 0 % (0-10); HEMATOCRIT 26 % (35-52); HEMOGLOBIN 8.9 g/dL (11.5-16.0); LYMPHOCYTES # (AUTO) 1.3 10^3/uL (1.0-4.0); LYMPHOCYTES % (AUTO) 11 % (12-44); MEAN CORPUSCULAR HEMOGLOBIN 32 pg (25-34); MEAN CORPUSCULAR HGB CONC 34 g/dL (32-36); MEAN CORPUSCULAR VOLUME 94 fL (80-99); MEAN PLATELET VOLUME 11.4 fL (9.0-12.2); MONOCYTES # (AUTO) 0.7 10^3/uL (0.0-1.0); MONOCYTES % (AUTO) 5 % (0-12); NEUTROPHILS # (AUTO) 10.3 10^3/uL (1.8-7.8); NEUTROPHILS % (AUTO) 83 % (42-75); PLATELET COUNT 176 10^3/uL (130-400); WHITE BLOOD COUNT 12.5 10^3/uL (4.3-11.0)
[2022-09-29 06:49] LABS: LYMPHOCYTES % (MANUAL) 9 %; MONOCYTES % (MANUAL) 2 %; NEUTROPHILS % (MANUAL) 88 %; RBC MORPH NORMAL
--- NOTE | 2022-09-29 08:01 | Progress Note ---
Subjective Subjective/Events-last exam Patient still complaining of diffuse abdominal pain. The discomfort is only present with pressure to the abdomen. She is resting comfortably in the room. When asked if dark tarry stools she has not had a bowel movement since she has been here. No reports of fever or any hematemesis. She did eat yesterday and had some complaints of abdominal discomfort afterwards. Focused Exam Lactate Level 09/28/22 09:31: Lactic Acid Level 2.53*H 09/28/22 11:23: Lactic Acid Level 2.19*H 09/28/22 13:45: Lactic Acid Level 4.57*H Objective Exam Last Set of Vital Signs Vital Signs Date Time Temp Pulse Resp B/P (MAP) Pulse Ox O2 Delivery O2 Flow Rate FiO2 09/29/22 04:35 36.3 73 16 87/52 (64) 100 Room Air Capillary Refill : I&O Intake and Output 09/29/22 00:00 Intake Total 1000 ml Balance 1000 ml Intake IV Total 1000 ml General: No Acute Distress (when no pressure applied to abdomen) Lungs: Clear to Auscultation Heart: Regular Rate, Other (grade 1/6 MIGUEL) Abdomen: Other (tenderness diffusely.) Skin: No Rashes Psych/Mental Status: Mental Status NL Results/Procedures Lab Laboratory Tests 09/28/22 09:31: Lactic Acid Level 2.53*H 09/28/22 10:00: Influenza Type A (RT-PCR) Not Detected, Influenza Type B (RT-PCR) Not Detected, SARS-CoV-2 RNA (RT-PCR) Not Detected 09/28/22 11:23: Lactic Acid Level 2.19*H 09/28/22 13:45: Lactic Acid Level 4.57*H 09/29/22 05:32: White Blood Count 12.5H, Red Blood Count 2.82L, Hemoglobin 8.9L, Hematocrit 26L, Mean Corpuscular Volume 94, Mean Corpuscular Hemoglobin 32, Mean Corpuscular Hemoglobin Concent 34, Red Cell Distribution Width 13.9, Platelet Count 176, Mean Platelet Volume 11.4, Immature Granulocyte % (Auto) 1, Neutrophils (%) (Auto) 83H, Lymphocytes (%) (Auto) 11L, Monocytes (%) (Auto) 5, Eosinophils (%) (Auto) 0, Basophils (%) (Auto) 0, Neutrophils # (Auto) 10.3H, Lymphocytes # (Auto) 1.3, Monocytes # (Auto) 0.7, Eosinophils # (Auto) 0.0, Basophils # (Auto) 0.0, Immature Granulocyte # (Auto) 0.2H, Neutrophils % (Manual) 88, Lymphocytes % (Manual) 9, Monocytes % (Manual) 2, Promonocyte % 1, Blood Morphology Comment NORMAL Microbiology 09/27/22 Wet Prep - Final, Complete Assessment/Plan Assessment/Plan Admission Dx 1. Abdominal pain 2. Elevated WBC on admission, now improved 3. Elevated lactic acid on admission. 4. Anemianew 5. IUP in breech position at 30 weeks 3 days gestation Admission Status: Observation Assessment & Plan 1. Abdominal pain etiology is uncertain at this time. It may just be her pain is due to abdominal wall stretching. -Yesterday she had DVT study of the lower extremities and both sides were negative. She also had gallbladder ultrasound which revealed hepatic steatosis but no cholelithiasis or acute cholecystitis. -CT of abdomen was essentially negative revealing only a tiny nonobstructive r ight renal calculi 09/29 surgical consultation 2. Elevated WBC on admission, now improved 3. Elevated lactic acid on admission. -No evidence for sepsis but blood cultures are pending. -She was started yesterday on Rocephin 1 g IV every 24 hours. This will be continued until negative but culture result. -Screening for lactic acid was discontinued. Will follow CBC 4. Anemianew -This may be related to delusional effect of IV fluids but cannot totally exclude GI bleed -surgery consult as well 5. IUP in breech position at 30 weeks 3 days gestation - monitoring is performed every shift now and reveals no contractions. monitor is otherwise reactive HEBERT CALDWELL MD September 29, 2022 08:01
[2022-09-29] MEDS: SUCRALFATE 1 GM (CARAFATE) TAB PO SCH ×4 (08:15→20:21)
[2022-09-29] MEDS: FAMOTIDINE 20MG/2ML IV (PEPCID) IVP SCH ×2 (08:45→20:20)
[2022-09-29] MEDS ORDERED: ACETAMINOPHEN 500 MG TAB (TYLENOL) PO ONE (10:30)
[2022-09-29] MEDS: ONDANSETRON 4 MG (ZOFRAN) ORAL DISSOLVE TAB PO PRN ×2 (10:43→20:21)
[2022-09-29] MEDS ORDERED: polyethylene glycoL POWDER 17 GM (MIRALAX) PACK PO ONE (14:00)
[2022-09-29] MEDS: cefTRIAXone IV/IM 1,000 MG in NS (IVPB) 50 ML IV SCH (14:36)
--- NOTE | 2022-09-29 14:39 | Consultation - Surgery ---
History of Present Illness History of Present Illness Patient Consulted On(ant/time) 09/29/22 14:34 Time Seen by Provider: 11:59 History of Present Illness Surgery asked to consult regarding Abdominal pain. HPI per OB: at 30w2d presented to labor and delivery due to abdominal pain. She states starting Saturday (4 days ago) she has had pain in lower abdomen, vagina, waistline and around to her back. She feels like the baby is trying to break out. She feels pain increased when the baby moves and pelvic pressure like she is trying to get out. She denies fever, nasal congestion, sore throat or cough. She does admit headache starting last night and blurry vision that she attributes to dry eyes from not being able to rest due to pain. She admits pain with urination and she saw blood in her urine 2 days ago, and had very small amount of spotting twice yesterday. She denies nausea, vomiting, diarrhea or constipation. She has pain in her calves and her arms which also started around the same time as the rest of her symptoms. She denies joint pains or rash. She denies complications with this prior to this, however on chart review she was admitted very early on due to concern for possible ectopic which was ruled out with normal US the following week, but did have left ovarian mass thought to be cyst. Per clinic notes she has complained of abdominal pain a few times throughout her routine visits and in her previous she also was seen with abdominal pain and neurologic symptoms. On Saturday she came in and was thought to be complaining of contractions and had a couple of initial contractions on monitor and reported previous delivery at 30 weeks and was found to be dilated to 2 cm, so betamethasone was given, but she then had no further contractions and no cervical change. Second dose of beta was given last night after she was readmitted with the above symptoms. She says this is similar to her last when she was induced early, she believes at 30 weeks. However, on further questioning she states she was induced due to running out of amniotic fluid, not similar pain. Also per chart review, she was induced at 36 weeks, and the did have it's entire hospital course here which indicates she was not less than 34 weeks. When I spoke to pt (using bingo checker) pt states she had pain above the uterus and below, plus she felt like she could not "push out any BM". She also stated this is the exact pain she had with her first . She has not had any pain during the pregancy besides this episode. The and the pt are asking about getting induced now and having baby now. She has never had RUQ pain or gallbladder problems. Allergies and Home Medications Allergies Coded Allergies: No Known Drug Allergies (Unverified , 10/25/18) Patient Home Medication List Home Medication List Reviewed: Yes Vit No.78/Iron/FA (Prenatabs FA Tablet) 29 Mg Iron-1 Mg Tablet, 1 EACH PO DAILY, (Reported) Entered as Reported by: ROM VALENZUELA on 09/11/22 6827 Past Ietanwn-Torpzy-Wnjjnh Hx Patient Social History Smoking Status: Never a Smoker 2nd Hand Smoke Exposure: No Recent Hopitalizations: No Alcohol Use?: No Immunizations Up To Date Tetanus Booster (TDap): Less than 5yrs PED Vaccines UTD: Yes Date of Influenza Vaccine: Jan 27, 2019 Seasonal Allergies Seasonal Allergies: No Surgeries History of Surgeries: Yes (R OOPHORECTOMY) Surgeries: Appendectomy, Oophorectomy Respiratory History of Respiratory Disorde: No Cardiovascular History of Cardiac Disorders: No Neurological History of Neurological Disord: No Reproductive System Hx : 2 Hx Para: 1 HIV/AIDS: No Genitourinary History of Genitourinary Disor: No Gastrointestinal History of Gastrointestinal Di: No Musculoskeletal History of Musculoskeletal Dis: No Endocrine History of Endocrine Disorders: No HEENT History of HEENT Disorders: No Cancer History of Cancer: No Psychosocial History of Psychiatric Problem: No Integumentary History of Skin or Integumenta: No Blood Transfusions History of Blood Disorders: No Adverse Reaction to a Blood Tr: No Family Medical History Significant Family History: No Pertinent Family Hx Family Medial History: Patient reports no known family medical history. Review of Systems-General Constitutional: No chills; malaise, weakness EENTM: No double vision, No eye pain, No epistaxis, No throat swelling Respiratory: No dyspnea on exertion, No hemoptysis, No short of breath Cardiovascular: No chest pain, No palpitations Gastrointestinal: abdominal pain; No hematemesis; loss of appetite; No melena, No nausea, No vomiting Genitourinary: dysuria, frequency; No hematuria Musculoskeletal: back pain, joint pain, muscle stiffness Skin: No change in color, No change in hair/nails Psychiatric/Neurological: Denies Anxiety, Denies Depressed, Denies Seizure Physical Exam-General Problems Physical Exam Vital Signs Vital Signs - First Documented 09/27/22 14:35 Temp 35.9 Pulse 93 Resp 18 B/P (MAP) 122/69 (86) Pulse Ox 100 O2 Delivery Room Air Capillary Refill : General Appearance: WD/WN, mild distress (secondary to pain), other (gravid abdomen) Eyes: Bilateral Eye PERRL, Bilateral Eye EOMI HEENT: pharynx normal; No scleral icterus (R), No scleral icterus (L) Neck: non-tender, supple Respiratory: lungs clear, normal breath sounds, no respiratory distress, no accessory muscle use Cardiovascular: no murmur, tachycardia Gastrointestinal: soft, guarding (voluntary), hernia (umbilical), other (gravid) Rectal: deferred Back: no CVA tenderness, no vertebral tenderness Extremities: no calf tenderness, normal capillary refill, pedal edema Neurologic/Psychiatric: photographer aerial II-XII nml as tested, alert, normal mood/affect, oriented x 3 Skin: normal color, warm/dry Lymphatic: no adenopathy (neck, axilla or groin) Data Review Labs Laboratory Tests 09/29/22 05:32: White Blood Count 12.5H, Red Blood Count 2.82L, Hemoglobin 8.9L, Hematocrit 26L, Mean Corpuscular Volume 94, Mean Corpuscular Hemoglobin 32, Mean Corpuscular Hemoglobin Concent 34, Red Cell Distribution Width 13.9, Platelet Count 176, Mean Platelet Volume 11.4, Immature Granulocyte % (Auto) 1, Neutrophils (%) (Auto) 83H, Lymphocytes (%) (Auto) 11L, Monocytes (%) (Auto) 5, Eosinophils (%) (Auto) 0, Basophils (%) (Auto) 0, Neutrophils # (Auto) 10.3H, Lymphocytes # (Auto) 1.3, Monocytes # (Auto) 0.7, Eosinophils # (Auto) 0.0, Basophils # (Auto) 0.0, Immature Granulocyte # (Auto) 0.2H, Neutrophils % (Manual) 88, Lymphocytes % (Manual) 9, Monocytes % (Manual) 2, Promonocyte % 1, Blood Morphology Comment NORMAL Microbiology 09/27/22 Wet Prep - Final, Complete Radiology Date of Exam:09/28/22 CT ABDOMEN/PELVIS WO PROCEDURE: CT abdomen and pelvis without contrast. TECHNIQUE: Multiple contiguous axial images were obtained through the abdomen and pelvis without the use of intravenous contrast. Auto Exposure Controls were utilized during the CT exam to meet ALARA standards for radiation dose reduction. INDICATION: 30 weeks patient with intractable abdominal pain. COMPARISON: No prior studies are available for comparison. The lung bases are clear. The liver and gallbladder are unremarkable. There is no biliary ductal dilatation. The pancreas and spleen are unremarkable. No adrenal mass is identified. Tiny calcifications in the lower pole right kidney are noted consistent with nonobstructing calculi. No definite ureteral calculi or hydronephrosis seen. Aorta is nonaneurysmal. There is an intrauterine fetus in a breech presentation. The small and large bowel loops are normal caliber. No inflammatory changes are seen. There is no free fluid or fluid collection identified. Bladder is unremarkable. IMPRESSION: 1. Tiny nonobstructing right renal calculi. No ureteral calculi or hydronephrosis detected. 2. Gravid uterus with fetus in a breech presentation. No definite complicating features are seen. 3. No acute abnormality in abdomen or pelvis is identified. Dictated by: Dictated on workstation # [id number] Dict: 09/28/22 1346 Trans: 09/28/22 1515 [facility] [id number] Interpreted by: IFEANYI BECKETT MD Electronically signed by: IFEANYI BECKETT MD 09/28/22 1511 Assessment/Plan Assessment/Plan Assessment/Plan Abdominal Pain Anemia Gravid Constipation I went over the CT and US myself and spoke with Dr. Owens twice. I also went through old chart and spoke with nurse. I spent about 45 total working this pt up. I think the abdominal pain is most likely due to the constipation; she describes pain exactly like during last labor and therefore cholecystitis doesn't seem likely. According to the nurse she is not having any contractions at this time. I think the anemia is just dilutional and due to . She has an elevated lactic acid, but I think this is from muscle or dehydration; would increase her IV fluids. I didn't see anything on the CT to indicate possible necrotic bowel and she is sitting up in bed not in acute distress. I had the nurse give a dose of Miralax; can repeat in 6 hours and in the am. I tried to explain to pt and that it is too soon to induce labor and get the baby out. ZEB FLORES DO September 29, 2022 14:39
[2022-09-29] MEDS ORDERED: polyethylene glycoL POWDER 17 GM (MIRALAX) PACK ONE (20:08)
[2022-09-29] MEDS: polyethylene glycoL POWDER 17 GM (MIRALAX) PACK PO PRN (20:22)
[2022-09-30 02:08] VITALS: BP 99/52
[2022-09-30] MEDS: NS IV 1000 ML 1,000 ML IV SCH (02:08)
[2022-09-30 06:19] LABS: BASOPHILS % (AUTO) 0 % (0-10); EOSINOPHILS % (AUTO) 0 % (0-10); HEMATOCRIT 28 % (35-52); HEMOGLOBIN 9.3 g/dL (11.5-16.0); LYMPHOCYTES # (AUTO) 1.7 10^3/uL (1.0-4.0); LYMPHOCYTES % (AUTO) 18 % (12-44); MEAN CORPUSCULAR HEMOGLOBIN 31 pg (25-34); MEAN CORPUSCULAR HGB CONC 33 g/dL (32-36); MEAN CORPUSCULAR VOLUME 93 fL (80-99); MEAN PLATELET VOLUME 10.9 fL (9.0-12.2); MONOCYTES # (AUTO) 0.8 10^3/uL (0.0-1.0); MONOCYTES % (AUTO) 9 % (0-12); NEUTROPHILS # (AUTO) 6.8 10^3/uL (1.8-7.8); NEUTROPHILS % (AUTO) 71 % (42-75); PLATELET COUNT 203 10^3/uL (130-400); WHITE BLOOD COUNT 9.5 10^3/uL (4.3-11.0)
[2022-09-30] MEDS ORDERED: HYDR-34 PO (08:20)
[2022-09-30] MEDS ORDERED: SUCR1TAB PO (08:20)
[2022-09-30] MEDS ORDERED: POLY17PO54 PO (08:20)
--- NOTE | 2022-09-30 09:49 | Discharge Inst-Women's Service ---
Discharge Inst-Women's Serv Depart Medication/Instructions New, Converted or Re-Newed RX: Transmitted to Pharmacy ([facility]) Instructions Recommendations are for continued regular walking but not excessive. Recommend to drink plenty of water. MiraLAX daily until regular bowel movements. Prescription for hydrocodone as well. The hydrocodone should be used very sparingly and try to discontinue if possible. One every 4 hours if needed for severe abdominal pain. Problems Reviewed?: Yes Consults/Follow Up Additional Follow Up: Yes (With Dr. Frye within 3-4 days) Activity Nothing Inside Vagina: No Chance (Until given clearance) Diet Discharge Diet: Regular Diet Return to The Hospital For: Vaginal bleeding noted or if Significant rhythmic uterine contractions. For Any Problems or Questions: Contact Your Physician HEBERT CALDWELL MD September 30, 2022 09:49
--- NOTE | 2022-09-30 09:51 | Discharge Summary ---
Diagnosis/Chief Complaint Date of Admission September 28, 2022 at 10:24 Date of Discharge September 30, 2022 Admission Diagnosis Admission Diagnosis 1. Abdominal pain 2. Elevated WBC on admission 3. Elevated lactic acid 4. IUP in breech position at 30 weeks 2 days gestation Discharge Diagnosis 1. Abdominal painetiology multiple. Perhaps soft tissue stretch along with constipation 2. Elevated WBC on admission, now improved 3. Elevated lactic acid on admission. 4. Anemianew 5. IUP in breech position at 30 weeks 3 days gestation, nonlabor Chief Complaint/HPI Chief Complaint/HPI at 30w2d presented to labor and delivery due to abdominal pain. She states starting Saturday (4 days ago) she has had pain in lower abdomen, vagina, waistline and around to her back. She feels like the baby is trying to break out. She feels pain increased when the baby moves and pelvic pressure like she is trying to get out. She denies fever, nasal congestion, sore throat or cough. She does admit headache starting last night and blurry vision that she attributes to dry eyes from not being able to rest due to pain. She admits pain with urination and she saw blood in her urine 2 days ago, and had very small amount of spotting twice yesterday. She denies nausea, vomiting, diarrhea or constipation. She has pain in her calves and her arms which also started around the same time as the rest of her symptoms. She denies joint pains or rash. She denies complications with this prior to this, however on chart review she was admitted very early on due to concern for possible ectopic which was ruled out with normal US the following week, but did have left ovarian mass thought to be cyst. Per clinic notes she has complained of abdominal pain a few times throughout her routine visits and in her previous she also was seen with abdominal pain and neurologic symptoms. On Saturday she came in and was thought to be complaining of contractions and had a couple of initial contractions on monitor and reported previous delivery at 30 weeks and was found to be dilated to 2 cm, so betamethasone was given, but she then had no further contractions and no cervical change. Second dose of beta was given last night after she was readmitted with the above symptoms. She says this is similar to her last when she was induced early, she believes at 30 weeks. However, on further questioning she states she was induced due to running out of amniotic fluid, not similar pain. Also per chart review, she was induced at 36 weeks, and the did have it's entire hospital course here which indicates she was not less than 34 weeks. Discharge Summary-Simple/Stand Consultations 1. Surgical consultationDr. Lolita Discharge Physical Examination Allergies: Coded Allergies: No Known Drug Allergies (Unverified , 10/25/18) Vitals & I&Os Vital Sign - Last 12Hours Date Time Temp Pulse Resp B/P (MAP) Pulse Ox O2 Delivery O2 Flow Rate FiO2 09/30/22 02:08 36.3 82 18 99/52 (68) 99 Room Air Intake and Output 09/29/22 23:59 Intake Total 1050 ml Balance 1050 ml General Appearance: No Acute Distress (While resting) Respiratory: Clear to Auscultation Cardiovascular: Regular Rate Abdominal: Other (She does react to tenderness with pressure to the upper abdomen as well to the lower abdomen both right and left side.) Extremities: No Edema Skin: No Rashes Neuro: Normal Speech Psych/Mental Status: Mental Status NL Hospital Course Was the Problem List Reviewed?: Yes 1. Abdominal pain etiology is uncertain at this time. It may just be her pain is due to abdominal wall stretching. -Yesterday she had DVT study of the lower extremities and both sides were negative. She also had gallbladder ultrasound which revealed hepatic steatosis but no cholelithiasis or acute cholecystitis. -CT of abdomen was essentially negative revealing only a tiny nonobstructive right renal calculi 09/29 surgical consultation 09/30. surgical consultation reviewed. Patient has been given 2 doses of MiraLAX without bowel movement. I have also encouraged plenty of fluids orally as well as IV. She has not yet had a bowel movement as of this morning. She is ready for dismissal. I will give her limited hydrocodone for pain relief while at home. I encouraged her to walk but not to do excessive. She will follow up with Dr. Frye in the next 3-4 days. 2. Elevated WBC on admissionresolved 3. Elevated lactic acid on admission. -No evidence for sepsis but blood cultures are pending. -She was started yesterday on Rocephin 1 g IV every 24 hours. This will be continued until negative but culture result. -Screening for lactic acid was discontinued. Will follow CBC 09/30. Rocephin was discontinued. All of her blood cultures were noted to be negative. The lactic acid elevation appears to not be related to infection 4. Anemianew -This may be related to delusional effect of IV fluids but cannot totally exclude GI bleed -surgery consult as well 09/30 -her hemoglobin on day of dismissal had increased to 9.3 5. IUP in breech position at 30 weeks 3 days gestation - monitoring is performed every shift now and reveals no contractions. monitor is otherwise reactive -cervix check early in her hospitalization stay revealed no change 09/30 -utilizing the skid strapper provided through [employer] and via the web, I conveyed to patient that at 30 weeks delivery would be very . I encouraged her to walk but also rest at the same time. I do not want to encourage the delivery of a 30 week gestation. There was no evidence for contractions on monitor. Radiology Reviewed Date of Exam:09/28/22 CT ABDOMEN/PELVIS WO PROCEDURE: CT abdomen and pelvis without contrast. TECHNIQUE: Multiple contiguous axial images were obtained through the abdomen and pelvis without the use of intravenous contrast. Auto Exposure Controls were utilized during the CT exam to meet ALARA standards for radiation dose reduction. INDICATION: 30 weeks patient with intractable abdominal pain. COMPARISON: No prior studies are available for comparison. The lung bases are clear. The liver and gallbladder are unremarkable. There is no biliary ductal dilatation. The pancreas and spleen are unremarkable. No adrenal mass is identified. Tiny calcifications in the lower pole right kidney are noted consistent with nonobstructing calculi. No definite ureteral calculi or hydronephrosis seen. Aorta is nonaneurysmal. There is an intrauterine fetus in a breech presentation. The small and large bowel loops are normal caliber. No inflammatory changes are seen. There is no free fluid or fluid collection identified. Bladder is unremarkable. IMPRESSION: 1. Tiny nonobstructing right renal calculi. No ureteral calculi or hydronephrosis detected. 2. Gravid uterus with fetus in a breech presentation. No definite complicating features are seen. 3. No acute abnormality in abdomen or pelvis is identified. Dictated by: Dictated on workstation # [id number] Dict: 09/28/22 1346 Trans: 09/28/22 1515 [facility] [id number] Interpreted by: IFEANYI BECKETT MD Electronically signed by: IFEANYI BECKETT MD 09/28/22 1515 Discharge Instructions to patient/family Please see electronic discharge instructions given to patient. Discharge Medications Reviewed and agree with Discharge Medication list on patient's Discharge Instruction sheet HEBERT CALDWELL MD September 30, 2022 09:51
[2022-09-30 10:09] VITALS: BP 104/59
[2022-09-30] MEDS: HYDROcodone/APAP 7.5 MG/325 MG (LORTAB, LORCET PLUS) TABLET PO PRN (10:13)
[2022-09-30] MEDS: FAMOTIDINE 20MG/2ML IV (PEPCID) IVP SCH (10:13)
[2022-09-30] MEDS: SUCRALFATE 1 GM (CARAFATE) TAB PO SCH (10:13)
[2022-09-30] MEDS: polyethylene glycoL POWDER 17 GM (MIRALAX) PACK PO PRN (12:10)
--- NOTE | 2022-09-30 14:12 | Progress Note - Surgery ---
Subjective Time Seen by a Provider: 11:36 Subjective/Events-last exam Pt seen and examined, still has same pain rating it 10 out of 10. She is getting relief with pain meds. Nurse states she got two doses of Miralax yesterday and still no BM. Review of Systems Pulmonary: No Dyspnea, No Cough Cardiovascular: No: Chest Pain, Palpitations Gastrointestinal: Abdominal Pain; No: Nausea, Vomiting, Melena, Hematochezia Focused Exam Lactate Level 09/28/22 09:31: Lactic Acid Level 2.53*H 09/28/22 11:23: Lactic Acid Level 2.19*H 09/28/22 13:45: Lactic Acid Level 4.57*H Objective Exam Vital Signs Date Time Temp Pulse Resp B/P (MAP) Pulse Ox O2 Delivery O2 Flow Rate FiO2 09/30/22 10:09 36.6 82 18 104/59 (74) 99 Room Air 09/30/22 02:08 36.3 82 18 99/52 (68) 99 Room Air 09/29/22 20:27 36.0 76 18 104/57 (73) 99 Room Air 09/29/22 14:34 36.6 84 18 119/57 (77) Room Air I & O 09/30/22 06:59 Intake Total 3050 ml Balance 3050 ml Capillary Refill : General Appearance: No Apparent Distress, Anxious HEENT: PERRL/EOMI Respiratory: Lungs Clear, Normal Breath Sounds, No Accessory Muscle Use, No Respiratory Distress Cardiovascular: Regular Rate, Rhythm, No Murmur Gastrointestinal: soft, guarding (voluntary), hernia (umbilical), other (gravid) Extremity: No Calf Tenderness, No Pedal Edema Results Lab Laboratory Tests 09/30/22 06:02: White Blood Count 9.5, Red Blood Count 3.02L, Hemoglobin 9.3L, Hematocrit 28L, Mean Corpuscular Volume 93, Mean Corpuscular Hemoglobin 31, Mean Corpuscular Hemoglobin Concent 33, Red Cell Distribution Width 13.7, Platelet Count 203, Mean Platelet Volume 10.9, Immature Granulocyte % (Auto) 1, Neutrophils (%) (Auto) 71, Lymphocytes (%) (Auto) 18, Monocytes (%) (Auto) 9, Eosinophils (%) (Auto) 0, Basophils (%) (Auto) 0, Neutrophils # (Auto) 6.8, Lymphocytes # (Auto) 1.7, Monocytes # (Auto) 0.8, Eosinophils # (Auto) 0.0, Basophils # (Auto) 0.0, Immature Granulocyte # (Auto) 0.1 Microbiology 09/28/22 Blood Culture - Preliminary, Resulted No growth 09/27/22 Wet Prep - Final, Complete Assessment/Plan Assessment/Plan Assessment/Plan Abdominal Pain Anemia Gravid Constipation Pt labs show normal WBC, still anemic but not dropping and metabolic panel not done today. According to the nurse she is not having any contractions at this time and baby is fine. I asked the nurse give another dose of Miralax. Nurse states plan is to send pt home today. I do not find anything surgical at this time, going home sounds like a reasonable plan. ZEB FLORES DO September 30, 2022 14:12
== END 2022-09-30 08:16 | disposition home or self-care (01) ==
LOC: WSo 14:16 → LDRP 14:16 → WSo 09-28 10:23 → LDRP 09-28 10:24
PROVIDERS: ADMIT Family Medicine; ATTEND Family Medicine
DX: O99.613 Diseases of the digestive system complicating pregnancy, third trimester (principal); O99.283 Endocrine, nutritional and metabolic diseases complicating pregnancy, third trimester; O99.891 Other specified diseases and conditions complicating pregnancy; M79.18 Myalgia, other site; D64.9 Anemia, unspecified; R10.9 Unspecified abdominal pain; D72.829 Elevated white blood cell count, unspecified; R74.02 Elevation of levels of lactic acid dehydrogenase [LDH]; K59.00 Constipation, unspecified; Z28.310 Unvaccinated for COVID-19; Z3A.30 30 weeks gestation of pregnancy
CPT/HCPCS: 74176; 76705 ×2; 76815; 80053 ×2; 81000; 82550; 83605 ×2; 83690; 85007 ×2; 85025 ×2; 85027 ×2; 87040; 87210; 87491; 87591; 87636; 93970; 96360; 96361 ×4; 96372; 96375 ×2; 96376 ×3; G0378; G0379; 36415

== ENCOUNTER 2022-10-18 16:48 | Outpatient (CLI) | payer SELFPAY ==
[~2022-10-18 16:48] MED LIST changes: +HYDR-34 PO; +POLY17PO54 PO; +SUCR1TAB PO
[2022-10-18 17:22] LABS: BILIRUBIN,URINE NEGATIVE (NEGATIVE); CLARITY,URINE CLEAR; COLOR,URINE YELLOW; GLUCOSE, URINE (UA) NEGATIVE (NEGATIVE); KETONES,URINE NEGATIVE (NEGATIVE); LEUKOCYTE ESTERASE ,URINE NEGATIVE (NEGATIVE); NITRITE,URINE NEGATIVE (NEGATIVE); PROTEIN,URINE NEGATIVE (NEGATIVE)
[2022-10-18 17:28] VITALS: BP 108/58
[2022-10-18 17:30] LABS: BACTERIA,URINE NEGATIVE /HPF
[2022-10-18] MEDS ORDERED: NIFE30TA2 PO (18:14)
[2022-10-18 18:20] VITALS: BP 108/58
--- NOTE | 2022-10-19 07:56 | Physician Query-Final Dx ---
Clinic Account Progress/Dx Physician Query: Please give diagnosis Please include # weeks gestation Date of Service Oct 18, 2022 at 16:48 LAVELL,MayOct 19, 2022 07:56
== END 2022-10-18 18:20 | disposition home or self-care (01) ==
LOC: WSo 16:48 → LDRP 16:48 → WSo 18:20
PROVIDERS: ATTEND Family Medicine
DX: O99.891 Other specified diseases and conditions complicating pregnancy (principal); R10.2 Pelvic and perineal pain; Z3A.00 Weeks of gestation of pregnancy not specified
CPT/HCPCS: 81000

== ENCOUNTER 2022-11-09 22:07 | Outpatient (CLI) | payer SELFPAY ==
[~2022-11-09] VITALS: Ht 147.3 cm; Wt 62.3 kg
[~2022-11-09 22:07] MED LIST changes: +NIFE30TA2 PO
[2022-11-09 22:28] LABS: BILIRUBIN,URINE NEGATIVE (NEGATIVE); CLARITY,URINE CLEAR; COLOR,URINE YELLOW; GLUCOSE, URINE (UA) NEGATIVE (NEGATIVE); KETONES,URINE NEGATIVE (NEGATIVE); LEUKOCYTE ESTERASE ,URINE TRACE (NEGATIVE); NITRITE,URINE NEGATIVE (NEGATIVE); PROTEIN,URINE NEGATIVE (NEGATIVE)
[2022-11-09 22:47] VITALS: BP 117/73
[2022-11-09 22:56] LABS: BACTERIA,URINE FEW /HPF; WBC,URINE RARE /HPF
--- NOTE | 2022-11-12 08:09 | Physician Query-Final Dx ---
Clinic Account Progress/Dx Physician Query: Please give diagnosis Please include the # of weeks gestation Date of Service Nov 09, 2022 at 22:07 LAVELL,MayNov 12, 2022 08:09
== END 2022-11-09 23:25 | disposition home or self-care (01) ==
LOC: WSo 22:07 → LDRP 22:07 → WSo 23:25
PROVIDERS: ATTEND Family Medicine
DX: O36.8190 Decreased fetal movements, unspecified trimester, not applicable or unspecified (principal); Z3A.00 Weeks of gestation of pregnancy not specified
CPT/HCPCS: 81000; 87088; 99213